=== PATIENT | male | born 1940 ===

== ENCOUNTER 2017-07-17 07:58 | Inpatient (IN) | payer MEDICARE, OTHER ==
[2017-07-17] MEDS ORDERED: HYDROmorphone 1 mg/ml ISec IVP STA ×2 (08:10→08:40)
[2017-07-17] MEDS ORDERED: Sodium Chloride 0.9% 500 ML IV STA (08:10)
[2017-07-17] MEDS ORDERED: Lidocaine 2% Jelly (Uro-Jet) ONE ×2 (08:22→10:47)
[2017-07-17] MEDS ORDERED: Sodium Chloride 0.9% 1,000 ML ONE (08:22)
[2017-07-17 08:36] LABS: BASO # 0.1 K/uL (0.0-0.2); BASO % 0.2 % (0.0-2.0); EOS # 0.1 K/uL (0.0-0.7); EOS % 0.2 % (0.0-4.0); HEMATOCRIT 49.6 % (35.0-51.0); LYMPH # 37.9 K/uL (1.0-4.3); LYMPH % 72.8 % (20.0-40.0); MEAN CORPUSCULAR HEMOGLOBIN 34.6 pg (27.0-31.0); MEAN CORPUSCULAR HGB CONC 32.4 g/dL (33.0-37.0); MEAN PLATELET VOLUME 10.5 fL (7.2-11.7); MONO # 1.5 K/uL (0.0-0.8); NRBC % 0.3 % (0.0-2.0); PLATELET COUNT 244 K/uL (130-400); RED CELL DISTRIBUTION WIDTH 20.4 % (11.5-14.5)
[2017-07-17 08:44] LABS: WHITE BLOOD COUNT 52.1 K/uL (4.8-10.8)
--- NOTE | 2017-07-17 08:46 | C.PDOC ---
History Of Present Illness <Zenia Vicente - Last Filed: 07/17/17 11:21> <Anna Lara - Last Filed: 07/17/17 11:34> 77-year-old male, PMHx includes Benign Prostatic Hyperplasia, CLL, Hypertension , Hypercholesterolemia, Kidney Stones, is brought to the emergency department accompanied by family, with complaints of urinary retention, that started last night. Patient is crying and uncomfortable, unable to provide further Hx. No other complaints at this time. (Anna Lara) <Zenia Vicente - Last Filed: 07/17/17 11:21> History Per: Family History/Exam Limitations: clinical condition Onset/Duration Of Symptoms: Hrs Current Symptoms Are (Timing): Still Present Severity: Moderate <Anna Lara - Last Filed: 07/17/17 11:34> Chief Complaint (Nursing): Male Genitourinary Past Medical History Reviewed: Historical Data, Nursing Documentation, Vital Signs - Medical History PMH: Benign Prostatic Hyperplasia, HTN, Hypercholesterolemia, Kidney Stones, Chronic Kidney Disease Family History: States: Unknown Family Hx Denies: CAD - Social History Hx Alcohol Use: No Hx Substance Use: No - Immunization History Hx Tetanus Toxoid Vaccination: No Hx Influenza Vaccination: Yes (07/2015) Hx Pneumococcal Vaccination: No <Anna Lara - Last Filed: 07/17/17 11:34> Vital Signs: Last Vital Signs Temp 97.5 F L 07/17/17 08:03 Pulse 106 H 07/17/17 11:18 Resp 18 07/17/17 11:18 BP 151/85 H 07/17/17 11:18 Pulse Ox 96 07/17/17 11:18 Review Of Systems Constitutional: Negative for: Fever Gastrointestinal: Positive for: Abdominal Pain. Negative for: Nausea, Vomiting Genitourinary: Positive for: Other (urinary retention). Negative for: Penile Pain Neurological: Negative for: Weakness, Numbness <Anna Lara - Last Filed: 07/17/17 11:34> Physical Exam - Physical Exam Appears: Non-toxic, No Acute Distress, Other (Uncomfortable, Crying.) Skin: Warm, Dry, No Rash Nose: Normal Oral Mucosa: Moist Lips: Normal Appearing Neck: Normal ROM Chest: Symmetrical Cardiovascular: Rhythm Regular, No Murmur Respiratory: No Accessory Muscle Use Gastrointestinal/Abdominal: Distention (Bladder) Extremity: Normal ROM Neurological/Psych: Oriented x3 <Anna Lara - Last Filed: 07/17/17 11:34> ED Course And Treatment - Laboratory Results Result Diagrams: 07/17/17 08:22 07/17/17 08:22 <Zenia Vicente - Last Filed: 07/17/17 11:21> - Laboratory Results Result Diagrams: 07/17/17 08:22 07/17/17 08:22 O2 Sat by Pulse Oximetry: 94 Progress Note: Several unsuccessful attempts to catheterize (w/ 14, 12, 16) patient. 0820: Case discussed with Dr Watson, states he is not available at this time, and will be able to come in "mid-afternoon.". 09:15. Case discussed w/ Dr Chavez, states he will come in to examine patient at bedside <Anna Lara - Last Filed: 07/17/17 11:34> Disposition <Zenia Vicente - Last Filed: 07/17/17 11:21> - Disposition Disposition Time: 11:34 <Anna Lara - Last Filed: 07/17/17 11:34> - Disposition Condition: FAIR Forms: [facility] (Bulgarian) - Clinical Impression Clinical Impression: Acute urinary retention, CLL (chronic lymphocytic leukemia) <Zenia Vicente - Last Filed: 07/17/17 11:21> - PA / WEATHER CLERK / Resident Statement MD/DO has reviewed & agrees with the documentation as recorded. - Scribe Statement The provider has reviewed the documentation as recorded by the Scribe (Jimmy Lopez) <Anna Lara - Last Filed: 07/17/17 11:34> - Scribe Statement All medical record entries made by the Scribe were at my direction and personally dictated by me. I have reviewed the chart and agree that the record accurately reflects my personal performance of the history, physical exam, medical decision making, and the department course for this patient. I have also personally directed, reviewed, and agree with the discharge instructions and disposition. (Anna Lara) Addendum <Zenia Vicente - Last Filed: 07/17/17 11:21> <Anna Lara - Last Filed: 07/17/17 11:34> Addendum: 07/17/17 11:21 Multiple attempts made by me to insert Coudet catheter - 14 gauge, 12 gauge, 16 gauge, all unsuccessful. (Zenia Vicente)
[2017-07-17 08:58] LABS: CHLORIDE 103 mmol/L (98-107); POTASSIUM 4.1 mmol/L (3.6-5.2); SODIUM 137 mmol/L (132-148)
[2017-07-17 09:00] LABS: ALB/GLOB RATIO 1.3 (1.0-2.1); AST/SGOT 32 U/L (17-59); CARBON DIOXIDE 19 mmol/L (22-30); GFR AFRICAN-AMERICAN > 60; TOTAL PROTEIN 8.2 g/dL (6.3-8.3)
[2017-07-17 09:01] LABS: ALKALINE PHOSPHATASE 58 U/L (38-126); ALT/SGPT 51 U/L (21-72); BLOOD UREA NITROGEN 24 mg/dL (9-20); CALCIUM 10.3 mg/dl (8.6-10.4); GLUCOSE,RANDOM 168 mg/dL (75-110)
[2017-07-17 10:04] LABS: NEUTROPHIL 29 % (50-75); REACTIVE LYMPHOCYTES 26 % (0-0); TOTAL CELLS COUNTED 100
[2017-07-17 10:06] LABS: LARGE PLATELETS PRESENT
[2017-07-17 10:10] LABS: SMUDGE CELLS PRESENT
[2017-07-17 10:16] LABS: RBC URINE 489 /hpf (0-3); URINE BILIRUBIN NEGATIVE (NEGATIVE); URINE BLOOD 2+ (NEGATIVE); URINE COLOR Yellow (YELLOW); URINE GLUCOSE (UA) 3+ mg/dL (Normal); URINE KETONE NEGATIVE (NEGATIVE); URINE LEUKOCYTE ESTERASE 2+ Leu/uL (Negative); URINE PROTEIN 2+ mg/dL (NEGATIVE); URINE UROBILINOGEN NORMAL mg/dL (0.2-1.0); WBC URINE 113 /hpf (0-5)
[2017-07-17] MEDS ORDERED: cefTRIAXone IV 1 gm in Dextros 50 ML IVPB ONE (11:15)
[2017-07-17] MEDS ORDERED: cefTRIAXone IV 1 gm in Dextros 50 ML IVPB STA (11:23)
[2017-07-17] MEDS ORDERED: Lidocaine 2% Inj (20ml) ONE (13:44)
[2017-07-17] MEDS ORDERED: Lactated Ringer's 1,000 ML IV ONE (15:10)
[2017-07-17] MEDS ORDERED: Propofol 10 mg/ml Inj (20 ML) ONE (15:14)
[2017-07-17] MEDS ORDERED: Midazolam 2 MG/2 ML VIAL ONE (15:14)
[2017-07-17] MEDS ORDERED: Etomidate 20 mg/10ml Inj IV ONE (15:42)
[2017-07-17] MEDS ORDERED: Sodium Chloride 0.9% 1,000 ML IV ONE (15:46)
[2017-07-17] MEDS ORDERED: HYDROmorphone 0.5 mg/0.5 ml ISec IVP PRN (15:48)
--- NOTE | 2017-07-17 16:32 | RAD ---
PROCEDURE: CHEST RADIOGRAPH, 1 VIEW HISTORY: R/O COMPARISON: Comparison is made to 02/06/2016 FINDINGS: LUNGS: Clear. PLEURA: No pneumothorax or pleural fluid seen. CARDIOVASCULAR: Normal. OSSEOUS STRUCTURES: No significant abnormalities. VISUALIZED UPPER ABDOMEN: Normal. OTHER FINDINGS: None. IMPRESSION: No active disease.
[2017-07-17 16:50] VITALS: RESP 20
[2017-07-17] MEDS: Lactated Ringer's 1,000 ML IV SCH (18:50)
--- NOTE | 2017-07-17 21:05 | CP.PCM.HP ---
History of Present Illness - History of Present Illness History of Present Illness: Chief complaint: Acute urinary retention History of present illness: 77-year-old male with a history of BPH, chronic lymphocytic leukemia hypertension high cholesterol renal stones admitted with a severe urinary tract obstruction. Patient was in severe pain at this time in the emergency room. Immediately patient underwent surgical procedure for Hung catheter placement. Under conscious sedation in the OR Hung catheter was placed. And the patient needed hospitalization. Clinical patient is stable otherwise. Past medical history: BPH, hypertension, high cholesterol, kidney stones, CRI Family history nonsignificant Nonalcohol nonsmoker Allergies no known drug allergy Surgical history biopsy. BPH. Hung catheter placement Review of system system: Prior to the Hung catheter patient was in severe distress, now have feeling better. No chest pain. On examination: Not in any distress vital signs stable chest good air entry regular abdomen nontender abdomen no pedal edema Assessment and recognition: 77-year-old male with history of BPH, hyper tension, chronic lymphocytic leukemia hypercholesteremia renal stones admitted with acute urinary retention. His status post a Hung catheter. Placement. We'll closely monitor the patient. Present on Admission - Present on Admission Any Indicators Present on Admission: No History of DVT/PE: No History of Uncontrolled Diabetes: No Urinary Catheter: No Decubitus Ulcer Present: No Past Patient History - Infectious Disease Hx of Infectious Diseases: None - Past Medical History & Family History Past Medical History?: Yes - Past Social History Smoking Status: Never Smoked - CARDIAC Hx Cardiac Disorders: Yes Hx Hypercholesterolemia: Yes Hx Hypertension: Yes - PULMONARY Hx Respiratory Disorders: No - NEUROLOGICAL Hx Neurological Disorder: No - HEENT Hx HEENT Problems: No - RENAL Hx Chronic Kidney Disease: Yes Hx Kidney Stones: Yes - ENDOCRINE/METABOLIC Hx Endocrine Disorders: Yes Hx Diabetes Mellitus Type 2: Yes - HEMATOLOGICAL/ONCOLOGICAL Hx Blood Disorders: No - INTEGUMENTARY Hx Dermatological Problems: No - MUSCULOSKELETAL/RHEUMATOLOGICAL Hx Musculoskeletal Disorders: No Hx Falls: No - GASTROINTESTINAL Hx Gastrointestinal Disorders: Yes Hx Gastroesophageal Reflux: Yes - GENITOURINARY/GYNECOLOGICAL Hx Genitourinary Disorders: Yes - PSYCHIATRIC Hx Psychophysiologic Disorder: No Hx Substance Use: No - SURGICAL HISTORY Hx Surgeries: Yes - ANESTHESIA Hx Anesthesia: Yes Hx Anesthesia Reactions: No Hx Malignant Hyperthermia: No Has any member of the family had a problem w/ anesthesia?: No Meds Home Medications: Home Medication List Medication Instructions Recorded Confirmed Type Ciprofloxacin [Cipro] 500 mg PO BID #6 tab 07/18/17 Rx Phenazopyridine [Pyridium] 200 mg PO BIDPC #6 tab 07/18/17 Rx Allergies/Adverse Reactions: Allergies Allergy/AdvReac Type Severity Reaction Status Date / Time No Known Allergies Allergy Verified 02/06/16 11:29 Results - Vital Signs Recent Vital Signs: Last Vital Signs Temp 97.5 F L 07/17/17 16:40 Pulse 85 07/17/17 16:40 Resp 20 07/17/17 16:40 BP 149/68 07/17/17 16:40 Pulse Ox 93 L 07/17/17 16:40 - Labs Result Diagrams: 07/17/17 08:22 07/17/17 08:22 Labs: Laboratory Results - last 24 hr 07/17/17 07/17/17 07/17/17 08:22 08:22 10:04 WBC 52.1 H* D RBC 4.64 Hgb 16.1 Hct 49.6 MCV 107.0 H MCH 34.6 H MCHC 32.4 L RDW 20.4 H Plt Count 244 MPV 10.5 Neut % (Auto) 23.8 L Lymph % (Auto) 72.8 H [place] % (Auto) 3.0 Eos % (Auto) 0.2 Baso % (Auto) 0.2 Neut # 12.4 H Lymph # 37.9 H [place] # 1.5 H Eos # 0.1 Baso # 0.1 Neutrophils % (Manual) 29 L Band Neutrophils % 1 Lymphocytes % (Manual) 43 H Reactive Lymphs % 26 H Monocytes % (Manual) 1 Smudge Cells Present Toxic Granulation Present Platelet Estimate Normal Large Platelets Present Hypochromasia (manual) Slight Poikilocytosis (manual Slight Basophilic Stippling Slight Anisocytosis (manual) Moderate Microcytosis (manual) Slight Macrocytosis (manual) Moderate Tear Drop Cells Slight Ovalocytes Slight PT INR APTT Sodium 137 Potassium 4.1 Chloride 103 Carbon Dioxide 19 L Anion Gap 19 BUN 24 H Creatinine 0.9 Est GFR ( Amer) > 60 Est GFR (Non-Af Amer) > 60 Random Glucose 168 H Calcium 10.3 Total Bilirubin 2.0 H AST 32 ALT 51 Alkaline Phosphatase 58 Total Protein 8.2 Albumin 4.6 Globulin 3.6 Albumin/Globulin Ratio 1.3 Lipase 111 Urine Color Yellow Urine Clarity Hazy Urine pH 9.0 Ur Specific [place] 1.025 Urine Protein 2+ H Urine Glucose (UA) 3+ H Urine Ketones Negative Urine Blood 2+ H Urine Nitrate Negative Urine Bilirubin Negative Urine Urobilinogen Normal Ur Leukocyte Esterase 2+ H Urine WBC (Auto) 113 H Urine RBC (Auto) 489 H Ur Squamous Epith Cells 1 Urine Yeast (Budding) Rare H Blood Type Antibody Screen 07/17/17 07/17/17 14:30 14:30 WBC RBC Hgb Hct MCV MCH MCHC RDW Plt Count MPV Neut % (Auto) Lymph % (Auto) [place] % (Auto) Eos % (Auto) Baso % (Auto) Neut # Lymph # [place] # Eos # Baso # Neutrophils % (Manual) Band Neutrophils % Lymphocytes % (Manual) Reactive Lymphs % Monocytes % (Manual) Smudge Cells Toxic Granulation Platelet Estimate Large Platelets Hypochromasia (manual) Poikilocytosis (manual Basophilic Stippling Anisocytosis (manual) Microcytosis (manual) Macrocytosis (manual) Tear Drop Cells Ovalocytes PT 11.0 INR 1.0 APTT 28 Sodium Potassium Chloride Carbon Dioxide Anion Gap BUN Creatinine Est GFR ( Amer) Est GFR (Non-Af Amer) Random Glucose Calcium Total Bilirubin AST ALT Alkaline Phosphatase Total Protein Albumin Globulin Albumin/Globulin Ratio Lipase Urine Color Urine Clarity Urine pH Ur Specific [place] Urine Protein Urine Glucose (UA) Urine Ketones Urine Blood Urine Nitrate Urine Bilirubin Urine Urobilinogen Ur Leukocyte Esterase Urine WBC (Auto) Urine RBC (Auto) Ur Squamous Epith Cells Urine Yeast (Budding) Blood Type O NEGATIVE Antibody Screen Negative
--- NOTE | 2017-07-17 21:41 | HP ---
EMERGENCY ROOM HISTORY AND PHYSICAL This patient is now being scheduled to the cystoscopy suite to insert a Hung catheter. BRIEF HISTORY: The patient is a 77-year-old male from [place], who has a more than 2-year history of BPH, currently on Flomax 0.4 mg daily, who presents to [facility] Emergency Room with a 12-hour history of acute urinary retention,voiding just small amount of urine and found to have over 700 mL of residual urine on bladder scan. The patient complaints of lower abdominal distention and pain. Multiple attempts by the ER staff to insert a Hung catheter and coude catheters met without success. Attempt by myself to insert an 18-Namibian, 16-Namibian and 14-Namibian coude catheters also met with resistance at the bladder neck area. There was also a slight strictured area just distal to the fossa navicularis but this eventually allowed a passage of a 16-Namibian coude catheter and 14-Namibian coude catheter. PAST MEDICAL HISTORY: Includes diabetes, hypertension, and BPH. PAST SURGICAL HISTORY: He denies any past surgical history, especially any urologic procedures. ALLERGIES: HE HAS NO KNOWN ALLERGIES TO ANY MEDICATIONS. SOCIAL HISTORY: He is a tobacco user, but no history of any alcohol use. PHYSICAL EXAMINATION: GENERAL: Today, the patient is a well-developed, well-nourished, obese male, alert and oriented. HEENT: Grossly within normal limits. NECK: Supple. Thyroid not palpable. ABDOMEN: Soft, but his lower abdominal area is distended and tender. He does have some blood from the urethral meatus and is also voiding very small amounts of some grossly bloody urine. This is prior to my instrumentation in the ER. GENITALIA: The patient is not circumcised, has a normal glans meatus without any rashes or lesions visualized. Testes are down bilaterally, nontender without any masses. RECTAL: Normal rectal tone without fluctuance or masses. Prostate is enlarged, smooth, symmetrical and nontender without nodules or indurations with a palpable median sulcus. EXTREMITIES: He has full range of motion of both upper and lower extremities. LABORATORY EVALUATION: From the ER on 07/17/2017 shows a CBC with a WBC count of 52.1, which is markedly elevated, which is consistent with his family history of an elevated WBC count. Platelet count is 244,000. Hemoglobin is 15.1, hematocrit 49.6. His chem profile shows a sodium of 137, potassium 4.1, chloride 103, CO2 of 19, BUN and creatinine of 24 and 0.9 respectively with a GFR greater than 60. Random glucose is 168. Calcium is 10.3. Total bilirubin was 2.0, AST was 32, ALT 51. Lipase 111. Urinalysis: Color was yellow, clarity was hazy, pH was 9.0, specific gravity 1.025, protein was 3+, glucose was 3+, ketones negative, blood was 2+, nitrite was negative, bilirubin was negative; leukocyte esterase was 2+, 113 wbc's, 489 rbc's per high-power field with rare yeast. UROLOGIC DIAGNOSTIC IMPRESSION: 1. Acute urinary retention. 2. Benign prostatic hypertrophy. PLAN: To schedule the patient for cystoscopy and insertion of a complicated Hung catcher and possible punch suprapubic cystostomy. Ean Chavez MD
[2017-07-17] MEDS ORDERED: Rosuvastatin Calcium 2.5 mg Tab PO SCH (22:00)
--- NOTE | 2017-07-18 02:07 | OP ---
PREOPERATIVE DIAGNOSIS: Urinary retention with traumatic catheterization. POSTOPERATIVE DIAGNOSIS: Urinary retention with traumatic catheterization. PROCEDURE PERFORMED: Cystoscopy with direct vision insertion of a Hung catheter under general anesthesia. DESCRIPTION OF PROCEDURE: The patient was placed in the operating table on dorsal lithotomy position. The area of the groin was draped and prepped in the sterile manner. I anteverted a #22 cystoscope, got to the level of the proximal urethra, and at this point, it was entirely bloody, could not see anything. After a while with some pressure on the water, I was able to see some false passages on the upper portion of the urethra. I was able to cannulate a small opening which was his existing urethra with a sensor wire. Once that sensor wire clearly went in, I then inserted a #16 two-way Hung catheter over that sensor wire and it began to drain immediately clear diana urine. Once this was done, I left the catheter in place. The patient was taken from the operating room in good condition. Savanah Mckenzie MD
[2017-07-18] MEDS ORDERED: Enoxaparin 40 mg Syringe SC SCH (10:00)
[2017-07-18] MEDS: Lactated Ringer's 1,000 ML IV SCH (14:42)
[2017-07-18 15:55] VITALS: BP 135/68; PULSE 80; TEMP 97.6; O2SAT 96
--- NOTE | 2017-07-18 15:57 | CP.PCM.PN ---
Subjective - Date & Time of Evaluation Date of Evaluation: 07/18/17 Time of Evaluation: 15:51 - Subjective Subjective: PATIENT SEEN AND EXAMINED AAO X3 NO SIGN OF ACUTE DISTRESS NOTED Objective - Vital Signs/Intake and Output Vital Signs (last 24 hours): Temp Pulse Resp BP Pulse Ox 98.1 F 74 20 120/70 94 L 07/18/17 08:00 07/18/17 08:00 07/18/17 08:00 07/18/17 08:00 07/18/17 08:00 Intake and Output: 07/18/17 07/18/17 06:59 18:59 Intake Total 900 840 Output Total 1050 1100 Balance -150 -260 - Medications Medications: Current Medications Ciprofloxacin (Cipro) 500 mg PO BID [facility] Last Admin: 07/18/17 09:40 Dose: 500 mg Famotidine (Pepcid) 20 mg PO DAILY [facility] Last Admin: 07/18/17 10:40 Dose: 20 mg Heparin Sodium (Porcine) (Heparin) 5,000 units SC Q8 [facility] Last Admin: 07/18/17 14:00 Dose: Not Given Lactated Ringer's (Lactated Ringer's) 1,000 mls @ 50 mls/hr IV .Q20H [facility] Last Admin: 07/18/17 14:42 Dose: 50 mls/hr Lisinopril (Zestril) 2.5 mg PO DAILY [facility] Last Admin: 07/18/17 09:40 Dose: 2.5 mg Phenazopyridine HCl (Pyridium) 200 mg PO BIDPC [facility] Last Admin: 07/18/17 09:40 Dose: 200 mg Pneumococcal Polyvalent Vaccine (Pneumovax 23 Vaccine) 0.5 ml IM .ONCE ONE Stop: 07/20/17 10:01 Prednisone (Prednisone Tab) 20 mg PO BID [facility] Last Admin: 07/18/17 09:40 Dose: 20 mg Rosuvastatin Calcium (Crestor) 2.5 mg PO HS [facility] Last Admin: 07/17/17 22:30 Dose: 2.5 mg Tamsulosin HCl (Flomax) 0.4 mg PO DAILY [facility] Last Admin: 07/18/17 10:35 Dose: 0.4 mg - Labs Labs: 07/17/17 08:22 07/17/17 08:22 PT 11.0 SECONDS (9.7-12.2) 07/17/17 14:30 INR 1.0 07/17/17 14:30 APTT 28 SECONDS (21-34) 07/17/17 14:30 Assessment and Plan - Assessment and Plan (Free Text) Assessment: DISCHARGE PLANNING DISCUSS WITH DR CALDERA AND CLEAR PATIENT FOR DC DR NORTH CLEARED PATIENT FOR DC WITH GENAO CATH AND FOLLOW UP OUT PATIENT TO HIS OFFICE GENAO CATH/LEG BAG IN PLACE AND PATIENT WAS INSTRUCTED HOW TO EMPTY GENAO BAG AND PATIENT WAS ABLE TO RETURN DEMONSTRATION SHOWN PATIENT NEED TO FOLOW UP WITH DR PALUMBO PMD OUT PATIENT IN A WEEK
[2017-07-18] MEDS ORDERED: Influenza Vaccine 60 mcg/0.5 mL SYR (4YR UP) IM ONE (16:15)
[2017-07-18] MEDS ORDERED: Pneumococcal 23-Valent Vaccine IM ONE (16:30)
--- NOTE | 2017-07-18 21:36 | CP.PCM.DIS ---
Provider - Provider Date of Admission: 07/17/17 11:31 Attending physician: Ho Dela Cruz MD Time Spent in preparation of Discharge (in minutes): 45 Hospital Course - Lab Results Lab Results: Micro Results 07/17/17 08:11 Urine Urine Culture - Final No Growth (<1,000 CFU/ML) Most Recent Lab Values WBC 52.1 K/uL (4.8-10.8) H* D 07/17/17 08:22 RBC 4.64 Mil/uL (4.40-5.90) 07/17/17 08:22 Hgb 16.1 g/dL (12.0-18.0) 07/17/17 08:22 Hct 49.6 % (35.0-51.0) 07/17/17 08:22 MCV 107.0 fL (80.0-94.0) H 07/17/17 08:22 MCH 34.6 pg (27.0-31.0) H 07/17/17 08:22 MCHC 32.4 g/dL (33.0-37.0) L 07/17/17 08:22 RDW 20.4 % (11.5-14.5) H 07/17/17 08:22 Plt Count 244 K/uL (130-400) 07/17/17 08:22 MPV 10.5 fL (7.2-11.7) 07/17/17 08:22 Neut % (Auto) 23.8 % (50.0-75.0) L 07/17/17 08:22 Lymph % (Auto) 72.8 % (20.0-40.0) H 07/17/17 08:22 [place] % (Auto) 3.0 % (0.0-10.0) 07/17/17 08:22 Eos % (Auto) 0.2 % (0.0-4.0) 07/17/17 08:22 Baso % (Auto) 0.2 % (0.0-2.0) 07/17/17 08:22 Neut # 12.4 K/uL (1.8-7.0) H 07/17/17 08:22 Lymph # 37.9 K/uL (1.0-4.3) H 07/17/17 08:22 [place] # 1.5 K/uL (0.0-0.8) H 07/17/17 08:22 Eos # 0.1 K/uL (0.0-0.7) 07/17/17 08:22 Baso # 0.1 K/uL (0.0-0.2) 07/17/17 08:22 Neutrophils % (Manual) 29 % (50-75) L 07/17/17 08:22 Band Neutrophils % 1 % (0-2) 07/17/17 08:22 Lymphocytes % (Manual) 43 % (20-40) H 07/17/17 08:22 Reactive Lymphs % 26 % (0-0) H 07/17/17 08:22 Monocytes % (Manual) 1 % (0-10) 07/17/17 08:22 Smudge Cells Present 07/17/17 08:22 Toxic Granulation Present 07/17/17 08:22 Platelet Estimate Normal (NORMAL) 07/17/17 08:22 Large Platelets Present 07/17/17 08:22 Hypochromasia (manual) Slight 07/17/17 08:22 Poikilocytosis (manual Slight 07/17/17 08:22 Basophilic Stippling Slight 07/17/17 08:22 Anisocytosis (manual) Moderate 07/17/17 08:22 Microcytosis (manual) Slight 07/17/17 08:22 Macrocytosis (manual) Moderate 07/17/17 08:22 Tear Drop Cells Slight 07/17/17 08:22 Ovalocytes Slight 07/17/17 08:22 Smear Path Review 07/17/17 08:22 PT 11.0 SECONDS (9.7-12.2) 07/17/17 14:30 INR 1.0 07/17/17 14:30 APTT 28 SECONDS (21-34) 07/17/17 14:30 Sodium 137 mmol/L (132-148) 07/17/17 08:22 Potassium 4.1 mmol/L (3.6-5.2) 07/17/17 08:22 Chloride 103 mmol/L (98-107) 07/17/17 08:22 Carbon Dioxide 19 mmol/L (22-30) L 07/17/17 08:22 Anion Gap 19 (10-20) 07/17/17 08:22 BUN 24 mg/dL (9-20) H 07/17/17 08:22 Creatinine 0.9 mg/dL (0.8-1.5) 07/17/17 08:22 Est GFR ( Amer) > 60 07/17/17 08:22 Est GFR (Non-Af Amer) > 60 07/17/17 08:22 POC Glucose (mg/dL) 171 mg/dL (65-110) H 07/18/17 11:17 Random Glucose 168 mg/dL (75-110) H 07/17/17 08:22 Calcium 10.3 mg/dl (8.6-10.4) 07/17/17 08:22 Total Bilirubin 2.0 mg/dL (0.2-1.3) H 07/17/17 08:22 AST 32 U/L (17-59) 07/17/17 08:22 ALT 51 U/L (21-72) 07/17/17 08:22 Alkaline Phosphatase 58 U/L (38-126) 07/17/17 08:22 Total Protein 8.2 g/dL (6.3-8.3) 07/17/17 08:22 Albumin 4.6 g/dL (3.5-5.0) 07/17/17 08:22 Globulin 3.6 gm/dL (2.2-3.9) 07/17/17 08:22 Albumin/Globulin Ratio 1.3 (1.0-2.1) 07/17/17 08:22 Lipase 111 U/L (23-300) 07/17/17 08:22 Urine Color Yellow (YELLOW) 07/17/17 10:04 Urine Clarity Hazy (Clear) 07/17/17 10:04 Urine pH 9.0 (5.0-8.0) 07/17/17 10:04 Ur Specific [place] 1.025 (1.003-1.030) 07/17/17 10:04 Urine Protein 2+ mg/dL (NEGATIVE) H 07/17/17 10:04 Urine Glucose (UA) 3+ mg/dL (Normal) H 07/17/17 10:04 Urine Ketones Negative mg/dL (NEGATIVE) 07/17/17 10:04 Urine Blood 2+ (NEGATIVE) H 07/17/17 10:04 Urine Nitrate Negative (NEGATIVE) 07/17/17 10:04 Urine Bilirubin Negative (NEGATIVE) 07/17/17 10:04 Urine Urobilinogen Normal mg/dL (0.2-1.0) 07/17/17 10:04 Ur Leukocyte Esterase 2+ Kayleigh/uL (Negative) H 07/17/17 10:04 Urine WBC (Auto) 113 /hpf (0-5) H 07/17/17 10:04 Urine RBC (Auto) 489 /hpf (0-3) H 07/17/17 10:04 Ur Squamous Epith Cells 1 /hpf (0-5) 07/17/17 10:04 Urine Yeast (Budding) Rare /hpf (NEGATIVE) H 07/17/17 10:04 Blood Type O NEGATIVE 07/17/17 14:30 Antibody Screen Negative 07/17/17 14:30 - Hospital Course Hospital Course: Chief complaint: Acute urinary retention History of present illness: 77-year-old male with a history of BPH, chronic lymphocytic leukemia hypertension high cholesterol renal stones admitted with a severe urinary tract obstruction. Patient was in severe pain at this time in the emergency room. Immediately patient underwent surgical procedure for Genao catheter placement. Under conscious sedation in the OR Genao catheter was placed. And the patient needed hospitalization. Clinical patient is stable otherwise. Past medical history: BPH, hypertension, high cholesterol, kidney stones, CRI Family history nonsignificant Nonalcohol nonsmoker Allergies no known drug allergy Surgical history biopsy. BPH. Genao catheter placement Review of system system: Prior to the Genao catheter patient was in severe distress, now have feeling better. No chest pain. On examination: Not in any distress vital signs stable chest good air entry regular abdomen nontender abdomen no pedal edema Assessment and recognition: 77-year-old male with history of BPH, hyper tension, chronic lymphocytic leukemia hypercholesteremia renal stones admitted with acute urinary retention. His status post a Genao catheter. Placement. We'll closely monitor the patient. Region is clinical stable. He will be discharged home today. He will follow-up with the urologist as an outpatient. Follow up with the PMD. By mouth ciprofloxacin, will follow the patient Discharge Plan - Discharge Medications Prescriptions: Ciprofloxacin [Cipro] 500 mg PO BID #6 tab Phenazopyridine [Pyridium] 200 mg PO BIDPC #6 tab - Follow Up Plan Condition: FAIR Disposition: HOME/ ROUTINE Instructions: Ciprofloxacin (By mouth), Phenazopyridine (By mouth), Urinary Retention in Men (GEN), Urinary Leg Bag (GEN) Additional Instructions: FOLLOW UP WITH DR PALUMBO IN HIS OFFICE IN ONE WEEK ---CALL OFFICE FOR APPOINTMENT FOLLOW UP WITH DR NORTH IN HIS OFFICE IN ONE WEEK ---CALL OFFICE FOR APPOINTMENT CONTINUE HOME MEDICATION USSUAL TAKE CIPRO AND PYRIDIUM FOER 3 DAYS KEEP GENAO CATH IN PLACE AND EMPTY OUT SHOWN IN THE HOSPITAL ANY FURTHER QUESTION DR PALUMBO OR DR NORTH Referrals: Sy Palumbo [Staff Provider] - Savanah North MD [Medical Doctor] - Ho Dela Cruz MD [Staff Provider] -
--- NOTE | 2017-07-19 19:15 | CARD ---
APPROVED REPORT EKG Measurement Heart [id number] <Conclusion> Normal sinus rhythm Normal ECG
== END 2017-07-18 17:29 | disposition home or self-care (01) | DRG 726 ==
LOC: C.ER 07:58 → C.9E 11:31 → C.3T 15:31
PROVIDERS: ADMIT Internal Medicine; ATTEND Internal Medicine
PROC: 0T9B80Z Drainage of Bladder with Drainage Device, Via Natural or Artificial Opening Endoscopic (ICD-10-PCS; principal; 2017-07-17 15:10)
DX: N40.1 Benign prostatic hyperplasia with lower urinary tract symptoms (principal); R33.8 Other retention of urine; T83.83XA Hemorrhage due to genitourinary prosthetic devices, implants and grafts, initial encounter; C91.10 Chronic lymphocytic leukemia of B-cell type not having achieved remission; E11.22 Type 2 diabetes mellitus with diabetic chronic kidney disease; I12.9 Hypertensive chronic kidney disease with stage 1 through stage 4 chronic kidney disease, or unspecified chronic kidney disease; N18.9 Chronic kidney disease, unspecified; K21.9 Gastro-esophageal reflux disease without esophagitis; E78.00 Pure hypercholesterolemia, unspecified; Z72.0 Tobacco use; Z87.442 Personal history of urinary calculi

== ENCOUNTER 2017-07-25 11:17 | Inpatient (IN) | payer MEDICARE, OTHER ==
[2017-07-25] MEDS ORDERED: Midazolam 2 MG/2 ML VIAL ONE (13:22)
[2017-07-25] MEDS ORDERED: Lidocaine 2% Inj (20ml) ONE (13:27)
[2017-07-25] MEDS ORDERED: Iodixanol 320 MG/ML 100 ML BOTTLE IV ONE ×2 (13:27→14:46)
[2017-07-25] MEDS ORDERED: Nitroglycerin 50mg in D5W 50 MG/250 ML BOTTLE IV ONE (13:41)
[2017-07-25 14:44] VITALS: BMI 33.2
[2017-07-25] MEDS ORDERED: Sodium Chloride 0.45% 1,000 ML IV SCH (15:15)
--- NOTE | 2017-07-25 18:28 | CP.PCM.HP ---
<MayurAlura Nirmal - Last Filed: 07/25/17 18:39> History of Present Illness - History of Present Illness History of Present Illness: CC: Patient came in for diagnostic cardiac cath with Dr. Sr Patient is a 77 y/o M with PMHx of HTN, DM II, CLL, kidney stones, urinary retention, bph, and acid reflux who came today for a diagnostic cardiac catheterization with Dr. Sr. Patient was admitted to the hospital one week ago for high cholesterol renal stones and severe urinary tract obstruction and lundberg was placed. Since then patient has been feeling better with catheter today cardiac cath showed triple vessel disease. Patient denies shortness of breath, chest pain, abdominal pain, nausea, vomiting, constipation, or diarrhea. PMD: Dr. Tran PMHx: HTN, DM II, CLL, kidney stones, urinary retention, bph, and acid reflux Surgeries: none Allergies: NKDA Fam hx: mom and 2 sisters : DM II, brother: heart dx at 93 Social: stopped smoking in 1986 prior to which smoked 3-4 packs per day for 35 years, denies alcohol and drugs Home Meds: Prednison 20 mg BID Cetirizine 10 mg daily Glipizide XL 10 mg BID Strovite daily Tamsulosin .4mg daily Famotidine 20 mg daily Lisinopril 2.5 mg daily Atorvastatin 10 mg daily Ciprofloxacin 500 mg BID Present on Admission - Present on Admission Any Indicators Present on Admission: No History of DVT/PE: No History of Uncontrolled Diabetes: No Urinary Catheter: No Decubitus Ulcer Present: No Review of Systems - Constitutional Constitutional: absent: Chills, Fever, Headache - EENT Eyes: absent: Blurred Vision Nose/Mouth/Throat: absent: Sore Throat - Cardiovascular Cardiovascular: absent: Chest Pain, Claudication, Diaphoresis, Edema, Irregular Heart Rhythm - Respiratory Respiratory: absent: Dyspnea, Dyspnea on Exertion, Chest Congestion - Gastrointestinal Gastrointestinal: absent: Constipation, Diarrhea, Nausea, Vomiting - Genitourinary Genitourinary: Difficulty Urinating Additional comments: urinating well with lundberg - Musculoskeletal Musculoskeletal: absent: Muscle Weakness - Integumentary Integumentary: absent: New Lesions, Rash - Neurological Neurological: absent: Numbness, Tingling - Hematologic/Lymphatic Hematologic: absent: Easy Bleeding, Easy Bruising Past Patient History - Infectious Disease Hx of Infectious Diseases: None - Past Medical History & Family History Past Medical History?: Yes - Past Social History Smoking Status: Never Smoked - CARDIAC Hx Cardiac Disorders: Yes Hx Hypercholesterolemia: Yes Hx Hypertension: Yes - PULMONARY Hx Respiratory Disorders: No - NEUROLOGICAL Hx Neurological Disorder: No - HEENT Hx HEENT Problems: No - RENAL Hx Chronic Kidney Disease: Yes Hx Kidney Stones: Yes - ENDOCRINE/METABOLIC Hx Endocrine Disorders: Yes Hx Diabetes Mellitus Type 2: Yes - HEMATOLOGICAL/ONCOLOGICAL Hx Blood Disorders: No - INTEGUMENTARY Hx Dermatological Problems: No - MUSCULOSKELETAL/RHEUMATOLOGICAL Hx Musculoskeletal Disorders: No Hx Falls: No - GASTROINTESTINAL Hx Gastrointestinal Disorders: Yes Hx Gastroesophageal Reflux: Yes - GENITOURINARY/GYNECOLOGICAL Hx Genitourinary Disorders: Yes - PSYCHIATRIC Hx Psychophysiologic Disorder: No Hx Substance Use: No - SURGICAL HISTORY Hx Surgeries: Yes - ANESTHESIA Hx Anesthesia: Yes Hx Anesthesia Reactions: No Hx Malignant Hyperthermia: No Meds Allergies/Adverse Reactions: Allergies Allergy/AdvReac Type Severity Reaction Status Date / Time No Known Drug Allergies AdvReac Unknown none Verified 07/25/17 18:38 Physical Exam - Constitutional Appears: Non-toxic, No Acute Distress - Head Exam Head Exam: ATRAUMATIC, NORMAL INSPECTION, NORMOCEPHALIC - Eye Exam Eye Exam: EOMI, Normal appearance - ENT Exam ENT Exam: Mucous Membranes Moist - Respiratory Exam Respiratory Exam: Clear to Auscultation Bilateral, NORMAL BREATHING PATTERN. absent: Rales, Rhonchi, Wheezes, Respiratory Distress, Stridor - Cardiovascular Exam Cardiovascular Exam: REGULAR RHYTHM, +S1, +S2 - GI/Abdominal Exam GI & Abdominal Exam: Normal Bowel Sounds, Soft. absent: Tenderness - Extremities Exam Extremities exam: Positive for: normal inspection. Negative for: pedal edema, tenderness - Neurological Exam Neurological exam: Alert, Oriented x3 - Psychiatric Exam Psychiatric exam: Normal Affect, Normal Mood - Skin Skin Exam: Intact, Normal Color, Warm Results - Labs Labs: Laboratory Results - last 24 hr 07/25/17 16:05 POC Glucose (mg/dL) 102 Assessment & Plan - Assessment and Plan (Free Text) Assessment: 1. CAD as per cardiac angiogram ASA 81 mg daily Plavix 15mg daily Crestor 40 mg daily Heparin 5000 u sc q12h 2. HTN Lisinopril 12.5 mg daily 3. DM II Hold Glipizide for 48 hours R ISS high dose ACHS accuchecks ACHS 4. HLD Hold atorvastatin 50 mg Give Crestor 40 mg po daily 5. BPH Tamsulosin .4mg po daily 6. Urinary Retention f/u with urologist, Dr. Mckenzie as an outpatient Cipro 500 mg po daily 7. CLL stable 8. GERD Famotidine 20 mg po daily 9. Prophylaxis Struvite daily holding prednisone and cetirizine which was given to him for allergies which are no longer bothering him 1/2 NS @60 ml/ hr Florastor 250 mg po BID (do not give within 2 hours of cipro) <Darian Davis - Last Filed: 07/25/17 20:27> Results - Labs Labs: Laboratory Results - last 24 hr 07/25/17 16:05 POC Glucose (mg/dL) 102 Attending/Attestation - Attestation I have personally seen and examined this patient.: Yes I have fully participated in the care of the patient.: Yes I have reviewed all pertinent clinical information: Yes Notes (Text): 07/25/17 20:25 Patient was seen and examined at 6 PM 07/25/17 ICU Bed #15 History, Physical, Assessment and Plan were thoroughly gone over with the resident. I spoke with Dr. Sr and patient will be taken to [facility] for Cardiac Catheterization morning of 07/26/17 and then transferred back to [facility]. Darian Davis D.O.
--- NOTE | 2017-07-25 18:53 | CP.PCM.CON ---
History of Present Illness - History of Present Illness History of Present Illness: ICU Consult Note Patient is a 77 y/o M with PMHx of HTN, DM II, CLL, kidney stones, urinary retention, bph, and acid reflux who came today for a diagnostic cardiac catheterization with Dr. Sr. Patient was admitted to the hospital one week ago for high cholesterol renal stones and severe urinary tract obstruction and lundberg was placed. Since then patient has been feeling better with catheter today cardiac cath showed triple vessel disease. Patient denies shortness of breath, chest pain, abdominal pain, nausea, vomiting, constipation, or diarrhea. PMD: Dr. Tran PMHx: HTN, DM II, CLL, kidney stones, urinary retention, bph, and acid reflux Surgeries: none Allergies: NKDA Fam hx: mom and 2 sisters : DM II, brother: heart dx at 93 Social: stopped smoking in 1986 prior to which smoked 3-4 packs per day for 35 years, denies alcohol and drugs Home Meds: Prednison 20 mg BID Cetirizine 10 mg daily Glipizide XL 10 mg BID Strovite daily Tamsulosin .4mg daily Famotidine 20 mg daily Lisinopril 2.5 mg daily Atorvastatin 10 mg daily Ciprofloxacin 500 mg BID Review of Systems - Constitutional Constitutional: absent: Chills, Fever - EENT Eyes: absent: Blurred Vision Nose/Mouth/Throat: absent: Hoarsness, Sore Throat - Cardiovascular Cardiovascular: absent: Chest Pain, Chest Pain at Rest, Claudication, Diaphoresis, Dyspnea, Irregular Heart Rhythm, Leg Edema, Palpitations - Respiratory Respiratory: absent: Cough, Dyspnea - Gastrointestinal Gastrointestinal: absent: Abdominal Pain, Constipation, Diarrhea, Nausea, Vomiting - Genitourinary Genitourinary: Difficulty Urinating Additional comments: urinating well with lundberg - Musculoskeletal Musculoskeletal: absent: Muscle Weakness, Myalgias - Integumentary Integumentary: absent: New Lesions, Rash - Neurological Neurological: absent: Dizziness Past Patient History - Infectious Disease Hx of Infectious Diseases: None - Past Medical History & Family History Past Medical History?: Yes - Past Social History Smoking Status: Never Smoked - CARDIAC Hx Cardiac Disorders: Yes Hx Hypercholesterolemia: Yes Hx Hypertension: Yes - PULMONARY Hx Respiratory Disorders: No - NEUROLOGICAL Hx Neurological Disorder: No - HEENT Hx HEENT Problems: No - RENAL Hx Chronic Kidney Disease: Yes Hx Kidney Stones: Yes - ENDOCRINE/METABOLIC Hx Endocrine Disorders: Yes Hx Diabetes Mellitus Type 2: Yes - HEMATOLOGICAL/ONCOLOGICAL Hx Blood Disorders: No - INTEGUMENTARY Hx Dermatological Problems: No - MUSCULOSKELETAL/RHEUMATOLOGICAL Hx Musculoskeletal Disorders: No Hx Falls: No - GASTROINTESTINAL Hx Gastrointestinal Disorders: Yes Hx Gastroesophageal Reflux: Yes - GENITOURINARY/GYNECOLOGICAL Hx Genitourinary Disorders: Yes - PSYCHIATRIC Hx Psychophysiologic Disorder: No Hx Substance Use: No - SURGICAL HISTORY Hx Surgeries: Yes - ANESTHESIA Hx Anesthesia: Yes Hx Anesthesia Reactions: No Hx Malignant Hyperthermia: No Meds Allergies/Adverse Reactions: Allergies Allergy/AdvReac Type Severity Reaction Status Date / Time No Known Drug Allergies AdvReac Unknown none Verified 07/25/17 18:38 - Medications Medications: Current Medications Aspirin (Aspirin Chewable) 81 mg PO DAILY [facility] Ciprofloxacin (Cipro) 500 mg PO BID [facility] Clopidogrel Bisulfate (Plavix) 75 mg PO DAILY [facility] Famotidine (Pepcid) 20 mg PO Q12 [facility] Heparin Sodium (Porcine) (Heparin) 5,000 units SC Q12 [facility] Sodium Chloride (Sodium Chloride 0.45%) 1,000 mls @ 60 mls/hr IV .[id number] [facility] Stop: 07/26/17 03:16 Insulin Human Regular (Novolin R) 0 unit SC ACHS [facility] PRN Reason: Protocol Lisinopril (Zestril) 2.5 mg PO DAILY [facility] Rosuvastatin Calcium (Crestor) 40 mg PO HS [facility] Saccharomyces Boulardii (Florastor) 250 mg PO BID [facility] Tamsulosin HCl (Flomax) 0.4 mg PO DAILY [facility] Vitamin B Complex/Vitamin C (Berocca) 1 tab PO DAILY [facility] Results - Labs Labs: Laboratory Results - last 24 hr 07/25/17 16:05 POC Glucose (mg/dL) 102
--- NOTE | 2017-07-25 19:03 | CP.PCM.CON ---
History of Present Illness - History of Present Illness History of Present Illness: Patient is a 77 y/o M with PMHx of HTN, DM II, CLL, kidney stones, urinary retention, bph, and acid reflux who came today for a diagnostic cardiac catheterization with Dr. Sr. Patient was admitted to the hospital one week ago for high cholesterol renal stones and severe urinary tract obstruction and lundberg was placed. Since then patient has been feeling better with catheter today cardiac cath showed triple vessel disease. Patient denies shortness of breath, chest pain, abdominal pain, nausea, vomiting, constipation, or diarrhea. PMD: Dr. Tran PMHx: HTN, DM II, CLL, kidney stones, urinary retention, bph, and acid reflux Surgeries: none Allergies: NKDA Fam hx: mom and 2 sisters : DM II, brother: heart dx at 93 Social: stopped smoking in 1986 prior to which smoked 3-4 packs per day for 35 years, denies alcohol and drugs Home Meds: Prednison 20 mg BID Cetirizine 10 mg daily Glipizide XL 10 mg BID Strovite daily Tamsulosin .4mg daily Famotidine 20 mg daily Lisinopril 2.5 mg daily Atorvastatin 10 mg daily Ciprofloxacin 500 mg BID Review of Systems - Constitutional Constitutional: absent: Anorexia, Chills - EENT Eyes: absent: Blurred Vision Nose/Mouth/Throat: absent: Nasal Discharge, Change in Voice, Hoarsness, Sore Throat - Cardiovascular Cardiovascular: absent: Chest Pain, Chest Pain at Rest, Claudication, Diaphoresis, Dyspnea, Edema, Leg Edema, Palpitations - Respiratory Respiratory: absent: Dyspnea, Chest Congestion - Gastrointestinal Gastrointestinal: absent: Constipation, Diarrhea, Nausea, Vomiting - Genitourinary Genitourinary: Difficulty Urinating Additional comments: urinating well with lundberg - Integumentary Integumentary: absent: Changing Lesions, Rash - Neurological Neurological: absent: Numbness - Hematologic/Lymphatic Hematologic: absent: Easy Bleeding, Easy Bruising Past Patient History - Infectious Disease Hx of Infectious Diseases: None - Past Medical History & Family History Past Medical History?: Yes - Past Social History Smoking Status: Never Smoked - CARDIAC Hx Cardiac Disorders: Yes Hx Hypercholesterolemia: Yes Hx Hypertension: Yes - PULMONARY Hx Respiratory Disorders: No - NEUROLOGICAL Hx Neurological Disorder: No - HEENT Hx HEENT Problems: No - RENAL Hx Chronic Kidney Disease: Yes Hx Kidney Stones: Yes - ENDOCRINE/METABOLIC Hx Endocrine Disorders: Yes Hx Diabetes Mellitus Type 2: Yes - HEMATOLOGICAL/ONCOLOGICAL Hx Blood Disorders: No - INTEGUMENTARY Hx Dermatological Problems: No - MUSCULOSKELETAL/RHEUMATOLOGICAL Hx Musculoskeletal Disorders: No Hx Falls: No - GASTROINTESTINAL Hx Gastrointestinal Disorders: Yes Hx Gastroesophageal Reflux: Yes - GENITOURINARY/GYNECOLOGICAL Hx Genitourinary Disorders: Yes - PSYCHIATRIC Hx Psychophysiologic Disorder: No Hx Substance Use: No - SURGICAL HISTORY Hx Surgeries: Yes - ANESTHESIA Hx Anesthesia: Yes Hx Anesthesia Reactions: No Hx Malignant Hyperthermia: No Meds Allergies/Adverse Reactions: Allergies Allergy/AdvReac Type Severity Reaction Status Date / Time No Known Drug Allergies AdvReac Unknown none Verified 07/25/17 18:38 - Medications Medications: Current Medications Aspirin (Aspirin Chewable) 81 mg PO DAILY [facility] Ciprofloxacin (Cipro) 500 mg PO BID [facility] Clopidogrel Bisulfate (Plavix) 75 mg PO DAILY [facility] Famotidine (Pepcid) 20 mg PO Q12 [facility] Heparin Sodium (Porcine) (Heparin) 5,000 units SC Q12 [facility] Sodium Chloride (Sodium Chloride 0.45%) 1,000 mls @ 60 mls/hr IV .[id number] [facility] Stop: 07/26/17 03:16 Insulin Human Regular (Novolin R) 0 unit SC ACHS [facility] PRN Reason: Protocol Lisinopril (Zestril) 2.5 mg PO DAILY [facility] Rosuvastatin Calcium (Crestor) 40 mg PO HS [facility] Saccharomyces Boulardii (Florastor) 250 mg PO BID [facility] Tamsulosin HCl (Flomax) 0.4 mg PO DAILY [facility] Vitamin B Complex/Vitamin C (Berocca) 1 tab PO DAILY [facility] Physical Exam - Constitutional Appears: Non-toxic, No Acute Distress - Head Exam Head Exam: ATRAUMATIC, NORMAL INSPECTION, NORMOCEPHALIC - Eye Exam Eye Exam: EOMI, Normal appearance - ENT Exam ENT Exam: Mucous Membranes Moist - Respiratory Exam Respiratory Exam: Clear to Auscultation Bilateral, NORMAL BREATHING PATTERN. absent: Rales, Rhonchi, Wheezes, Respiratory Distress, Stridor - Cardiovascular Exam Cardiovascular Exam: REGULAR RHYTHM, +S1, +S2 - GI/Abdominal Exam GI & Abdominal Exam: Normal Bowel Sounds, Soft. absent: Tenderness - Extremities Exam Extremities exam: Positive for: normal inspection. Negative for: pedal edema, tenderness - Neurological Exam Neurological exam: Alert, Oriented x3 - Psychiatric Exam Psychiatric exam: Normal Affect, Normal Mood - Skin Skin Exam: Intact, Normal Color, Warm Results - Labs Labs: Laboratory Results - last 24 hr 07/25/17 16:05 POC Glucose (mg/dL) 102 Assessment & Plan - Assessment and Plan (Free Text) Assessment: Patient is a 77 y/o M with PMHx of HTN, DM II, CLL, kidney stones, urinary retention, bph, and acid reflux who came today for a diagnostic cardiac catheterization with Dr. Sr which showed triple vessel disease. Neuro: intact Pulm: no signs of acute pulmonary disease Cardio: Hx HTN, HLD Triple vessel dx as per cardiac cath Medications and management: * patient to go for therapeutic cardiac cath with Dr. Sr * ASA 81 mg daily * Plavix 15mg daily * Crestor 40 mg daily * Heparin 5000 u sc q12h * Lisinopril 12.5 mg daily * Crestor 40 mg po daily Heme: hx CLL * stable Endo: hx DM II Medications and management: * Hold Glipizide for 48 hours * R ISS high dose ACHS * accuchecks ACHS GI: hx GERD Medications and management: * Famotidine 20 mg po daily : hx BPH and Urinary retention Medications and management: * Tamsulosin .4mg po daily * f/u with urologist, Dr. Mckenzie as an outpatient * Cipro 500 mg po daily Prophylaxis: Medications and management: * Struvite daily * holding prednisone and cetirizine which was given to him for allergies which are no longer bothering him * 1/2 NS @60 ml/ hr * Florastor 250 mg po BID (do not give within 2 hours of cipro)
--- NOTE | 2017-07-25 21:45 | CP.PCM.PN ---
Subjective - Date & Time of Evaluation Date of Evaluation: 07/25/17 Time of Evaluation: 13:05 - Subjective Subjective: Patient s/p Cath Triple vessel disease For PCI at [place] tomorrow afternoon Patient will return back after the procedure NPO after breakfast Continue all ameds Objective - Vital Signs/Intake and Output Vital Signs (last 24 hours): Temp Pulse Resp BP Pulse Ox 98.3 F 63 18 119/60 97 07/25/17 20:00 07/25/17 20:55 07/25/17 20:55 07/25/17 20:55 07/25/17 20:55 Intake and Output: 07/25/17 07/26/17 18:59 06:59 Intake Total 120 Output Total 1000 Balance -880 - Medications Medications: Current Medications Aspirin (Aspirin Chewable) 81 mg PO DAILY [facility] Ciprofloxacin (Cipro) 500 mg PO BID [facility] Last Admin: 07/25/17 20:02 Dose: 500 mg Clopidogrel Bisulfate (Plavix) 75 mg PO DAILY [facility] Famotidine (Pepcid) 20 mg PO Q12 [facility] Heparin Sodium (Porcine) (Heparin) 5,000 units SC Q12 [facility] Sodium Chloride (Sodium Chloride 0.45%) 1,000 mls @ 60 mls/hr IV .[id number] [facility] Stop: 07/26/17 03:16 Last Admin: 07/25/17 17:00 Dose: 60 mls/hr Insulin Human Regular (Novolin R) 0 unit SC ACHS [facility] PRN Reason: Protocol Lisinopril (Zestril) 2.5 mg PO DAILY [facility] Rosuvastatin Calcium (Crestor) 40 mg PO HS [facility] Saccharomyces Boulardii (Florastor) 250 mg PO BID [facility] Tamsulosin HCl (Flomax) 0.4 mg PO DAILY [facility] Vitamin B Complex/Vitamin C (Berocca) 1 tab PO DAILY [facility]
[2017-07-25] MEDS: (Novolin R) Insulin Human Regular 100 units/ml vial SC SCH (23:17)
[2017-07-26 06:25] LABS: BASO # 0.1 K/uL (0.0-0.2); BASO % 0.3 % (0.0-2.0); EOS # 0.2 K/uL (0.0-0.7); EOS % 0.7 % (0.0-4.0); HEMATOCRIT 39.5 % (35.0-51.0); LYMPH # 19.2 K/uL (1.0-4.3); LYMPH % 69.9 % (20.0-40.0); MEAN CELL VOLUME 105.9 fL (80.0-94.0); MEAN CORPUSCULAR HEMOGLOBIN 35.6 pg (27.0-31.0); MEAN CORPUSCULAR HGB CONC 33.6 g/dL (33.0-37.0); MEAN PLATELET VOLUME 9.6 fL (7.2-11.7); MONO # 0.6 K/uL (0.0-0.8); MONO % 2.3 % (0.0-10.0); NRBC % 0.1 % (0.0-2.0); WHITE BLOOD COUNT 27.5 K/uL (4.8-10.8)
[2017-07-26 06:31] LABS: CHLORIDE 99 mmol/L (98-107); POTASSIUM 4.5 mmol/L (3.6-5.2); SODIUM 133 mmol/L (132-148)
[2017-07-26 06:33] LABS: ALB/GLOB RATIO 1.1 (1.0-2.1); ALKALINE PHOSPHATASE 43 U/L (38-126); ALT/SGPT 53 U/L (21-72); AST/SGOT 26 U/L (17-59); BILIRUBIN,TOTAL 2.2 mg/dL (0.2-1.3); BLOOD UREA NITROGEN 18 mg/dL (9-20); CARBON DIOXIDE 24 mmol/L (22-30); CHOLESTEROL 113 mg/dL (0-199); GFR AFRICAN-AMERICAN > 60; GLUCOSE,RANDOM 90 mg/dL (75-110); TOTAL PROTEIN 6.1 g/dL (6.3-8.3)
[2017-07-26 06:34] LABS: CALCIUM 8.9 mg/dl (8.6-10.4); PHOSPHOROUS 3.6 mg/dL (2.5-4.5)
[2017-07-26 07:08] LABS: THYROID STIMULATING HORMONE 2.15 mIU/L (0.46-4.68)
[2017-07-26] MEDS: (Novolin R) Insulin Human Regular 100 units/ml vial SC SCH ×4 (08:07→21:39)
--- NOTE | 2017-07-26 08:22 | CP.CCUPN ---
<JebmissyLaura Nirmal - Last Filed: 07/26/17 14:45> CCU Subjective - Physician Review Subjective (Free Text): Patient seen and examined at bedside and in no acute distress. Patient has no pain and is feeling okay. Patient last had a bowel movement 2 days ago. Patient denies chest pain, shortness of breath, abdominal pain, nausea, vomiting, or diarrhea. CCU Objective - Vital Signs / Intake & Output Intake and Output (Last 8hrs): Intake & Output 07/25/17 07/26/17 07/26/17 22:59 06:59 14:59 Intake Total 180 290 Output Total 1200 400 Balance -1020 -110 Intake: Intake, IV Amount 180 240 Left Hand 180 240 Oral 50 Output: Urine 1200 400 Urethral (Lundberg) 1200 400 Other: Voiding Method Indwelling Catheter - Physical Exam Head: Positive for: Atraumatic, Normocephalic Extroacular Muscles: Positive for: EOMI Conjunctiva: Positive for: Normal Mouth: Positive for: Moist Mucous Membranes Neck: Positive for: Normal Range of Motion Respiratory/Chest: Positive for: Clear to Auscultation, Good Air Exchange. Negative for: Respiratory Distress, Accessory Muscle Use Cardiovascular: Positive for: Regular Rate and Rhythm, Normal S1, S2 Abdomen: Positive for: Normal Bowel Sounds. Negative for: Tenderness, Distention Upper Extremity: Positive for: Normal Inspection (right wrist dressing clean, dry, intact) Lower Extremity: Positive for: Normal Inspection. Negative for: Edema Neurological: Positive for: GCS=15 Skin: Positive for: Warm, Dry, Normal Color Psychiatric: Positive for: Alert, Oriented x 3 - Medications Active Medications: Active Medications Generic Name Dose Route Start Last Admin Trade Name Tanoq PRN Reason Stop Dose Admin Aspirin 81 mg 07/26/17 10:00 Aspirin Chewable PO DAILY [facility] Ciprofloxacin 500 mg 07/25/17 18:45 07/25/17 20:02 Cipro PO 500 mg BID PATRICIA Administration Clopidogrel Bisulfate 75 mg 07/26/17 10:00 Plavix PO DAILY [facility] Famotidine 20 mg 07/25/17 22:00 07/25/17 23:16 Pepcid PO 20 mg Q12 PATRICIA Administration Heparin Sodium (Porcine) 5,000 units 07/25/17 22:00 07/25/17 23:14 Heparin SC 5,000 units Q12 PATRICIA Administration Insulin Human Regular 0 unit 07/25/17 22:00 07/26/17 08:07 Novolin R SC Not Given ACHS PATRICIA Protocol Lisinopril 2.5 mg 07/26/17 10:00 Zestril PO DAILY PATRIC[facility] Rosuvastatin Calcium 40 mg 07/25/17 22:00 07/25/17 23:15 Crestor PO 40 mg HS PATRICIA Administration Saccharomyces Boulardii 250 mg 07/26/17 10:00 Florastor PO BID PATRICIA Tamsulosin HCl 0.4 mg 07/26/17 10:00 Flomax PO DAILY PATRICIA Vitamin B Complex/Vitamin C 1 tab 07/26/17 10:00 Berocca PO DAILY PATRICIA - Patient Studies Lab Studies: Lab Studies 07/26/17 07/26/17 07/26/17 Range/Units 07:40 06:14 06:10 WBC 27.5 H (4.8-10.8) K/uL RBC 3.73 L (4.40-5.90) Mil/uL Hgb 13.3 D (12.0-18.0) g/dL Hct 39.5 (35.0-51.0) % MCV 105.9 H (80.0-94.0) fL MCH 35.6 H (27.0-31.0) pg MCHC 33.6 (33.0-37.0) g/dL RDW 20.0 H (11.5-14.5) % Plt Count 210 (130-400) K/uL MPV 9.6 (7.2-11.7) fL Neut % (Auto) 26.8 L (50.0-75.0) % Lymph % (Auto) 69.9 H (20.0-40.0) % [place] % (Auto) 2.3 (0.0-10.0) % Eos % (Auto) 0.7 (0.0-4.0) % Baso % (Auto) 0.3 (0.0-2.0) % Neut # 7.4 H (1.8-7.0) K/uL Lymph # 19.2 H (1.0-4.3) K/uL [place] # 0.6 (0.0-0.8) K/uL Eos # 0.2 (0.0-0.7) K/uL Baso # 0.1 (0.0-0.2) K/uL PT 11.5 (9.7-12.2) SECONDS INR 1.0 APTT 31 (21-34) SECONDS Sodium (132-148) mmol/L Potassium (3.6-5.2) mmol/L Chloride (98-107) mmol/L Carbon Dioxide (22-30) mmol/L Anion Gap (10-20) BUN (9-20) mg/dL Creatinine (0.8-1.5) mg/dL Est GFR ( Amer) Est GFR (Non-Af Amer) POC Glucose (mg/dL) 139 H (65-110) mg/dL Random Glucose (75-110) mg/dL Calcium (8.6-10.4) mg/dl Phosphorus (2.5-4.5) mg/dL Magnesium (1.6-2.3) mg/dL Total Bilirubin (0.2-1.3) mg/dL AST (17-59) U/L ALT (21-72) U/L Alkaline Phosphatase (38-126) U/L Total Creatine Kinase (55-170) U/L CK-MB (Mass) (0.0-3.38) ng/mL Troponin I, Quant (0.00-0.120) ng/mL Total Protein (6.3-8.3) g/dL Albumin (3.5-5.0) g/dL Globulin (2.2-3.9) gm/dL Albumin/Globulin Ratio (1.0-2.1) Triglycerides (0-149) mg/dL Cholesterol (0-199) mg/dL LDL Cholesterol Direct (0-129) mg/dL HDL Cholesterol (30-70) mg/dL TSH 3rd Generation (0.46-4.68) mIU/L 07/26/17 07/25/17 07/25/17 Range/Units 06:10 21:09 16:05 WBC (4.8-10.8) K/uL RBC (4.40-5.90) Mil/uL Hgb (12.0-18.0) g/dL Hct (35.0-51.0) % MCV (80.0-94.0) fL MCH (27.0-31.0) pg MCHC (33.0-37.0) g/dL RDW (11.5-14.5) % Plt Count (130-400) K/uL MPV (7.2-11.7) fL Neut % (Auto) (50.0-75.0) % Lymph % (Auto) (20.0-40.0) % [place] % (Auto) (0.0-10.0) % Eos % (Auto) (0.0-4.0) % Baso % (Auto) (0.0-2.0) % Neut # (1.8-7.0) K/uL Lymph # (1.0-4.3) K/uL [place] # (0.0-0.8) K/uL Eos # (0.0-0.7) K/uL Baso # (0.0-0.2) K/uL PT (9.7-12.2) SECONDS INR APTT (21-34) SECONDS Sodium 133 (132-148) mmol/L Potassium 4.5 (3.6-5.2) mmol/L Chloride 99 (98-107) mmol/L Carbon Dioxide 24 (22-30) mmol/L Anion Gap 13 (10-20) BUN 18 (9-20) mg/dL Creatinine 0.9 (0.8-1.5) mg/dL Est GFR ( Amer) > 60 Est GFR (Non-Af Amer) > 60 POC Glucose (mg/dL) 165 H 102 (65-110) mg/dL Random Glucose 90 (75-110) mg/dL Calcium 8.9 (8.6-10.4) mg/dl Phosphorus 3.6 (2.5-4.5) mg/dL Magnesium 2.0 (1.6-2.3) mg/dL Total Bilirubin 2.2 H (0.2-1.3) mg/dL AST 26 (17-59) U/L ALT 53 (21-72) U/L Alkaline Phosphatase 43 (38-126) U/L Total Creatine Kinase 28 L (55-170) U/L CK-MB (Mass) 1.36 (0.0-3.38) ng/mL Troponin I, Quant < 0.0120 (0.00-0.120) ng/mL Total Protein 6.1 L (6.3-8.3) g/dL Albumin 3.3 L D (3.5-5.0) g/dL Globulin 2.9 (2.2-3.9) gm/dL Albumin/Globulin Ratio 1.1 (1.0-2.1) Triglycerides 114 (0-149) mg/dL Cholesterol 113 (0-199) mg/dL LDL Cholesterol Direct 61 (0-129) mg/dL HDL Cholesterol 41 (30-70) mg/dL TSH 3rd Generation 2.15 (0.46-4.68) mIU/L Laboratory Results - last 24 hr 07/25/17 07/25/17 07/26/17 16:05 21:09 06:10 WBC RBC Hgb Hct MCV MCH MCHC RDW Plt Count MPV Neut % (Auto) Lymph % (Auto) [place] % (Auto) Eos % (Auto) Baso % (Auto) Neut # Lymph # [place] # Eos # Baso # PT INR APTT Sodium 133 Potassium 4.5 Chloride 99 Carbon Dioxide 24 Anion Gap 13 BUN 18 Creatinine 0.9 Est GFR ( Amer) > 60 Est GFR (Non-Af Amer) > 60 POC Glucose (mg/dL) 102 165 H Random Glucose 90 Calcium 8.9 Phosphorus 3.6 Magnesium 2.0 Total Bilirubin 2.2 H AST 26 ALT 53 Alkaline Phosphatase 43 Total Creatine Kinase 28 L CK-MB (Mass) 1.36 Troponin I, Quant < 0.0120 Total Protein 6.1 L Albumin 3.3 L D Globulin 2.9 Albumin/Globulin Ratio 1.1 Triglycerides 114 Cholesterol 113 LDL Cholesterol Direct 61 HDL Cholesterol 41 TSH 3rd Generation 2.15 07/26/17 07/26/17 07/26/17 06:10 06:14 07:40 WBC 27.5 H RBC 3.73 L Hgb 13.3 D Hct 39.5 MCV 105.9 H MCH 35.6 H MCHC 33.6 RDW 20.0 H Plt Count 210 MPV 9.6 Neut % (Auto) 26.8 L Lymph % (Auto) 69.9 H [place] % (Auto) 2.3 Eos % (Auto) 0.7 Baso % (Auto) 0.3 Neut # 7.4 H Lymph # 19.2 H [place] # 0.6 Eos # 0.2 Baso # 0.1 PT 11.5 INR 1.0 APTT 31 Sodium Potassium Chloride Carbon Dioxide Anion Gap BUN Creatinine Est GFR ( Amer) Est GFR (Non-Af Amer) POC Glucose (mg/dL) 139 H Random Glucose Calcium Phosphorus Magnesium Total Bilirubin AST ALT Alkaline Phosphatase Total Creatine Kinase CK-MB (Mass) Troponin I, Quant Total Protein Albumin Globulin Albumin/Globulin Ratio Triglycerides Cholesterol LDL Cholesterol Direct HDL Cholesterol TSH 3rd Generation Fingerstick Blood Sugar Results: 139 Review of Systems - Constitutional Constitutional: absent: Fever, Chills - EENT Eyes: absent: Blurred Vision - Cardiovascular Cardiovascular: absent: Chest Pain, Claudication, Dyspnea, Leg Edema - Respiratory Respiratory: absent: Cough, Dyspnea - Gastrointestinal Gastrointestinal: absent: Abdominal Pain, Diarrhea, Nausea, Vomiting - Genitourinary Genitourinary: absent: Difficulty Urinating Additional comments: urinating well with lundberg catheter - Musculoskeletal Musculoskeletal: absent: Numbness, Tingling - Integumentary Integumentary: absent: Rash - Neurological Neurological: UNREMARKABLE - Hematologic/Lymphatic Hematologic: absent: Easy Bleeding, Easy Bruising Critical Care Progress Note - Nutrition Nutrition: Nutrition Category Date Time Status Heart Healthy Diet [DIET] Diets 07/25/17 Dinner Active NPO Diet [DIET] Diets 07/26/17 Lunch Active Assessment/Plan - Assessment and Plan (Free Text) Assessment: Patient is a 77 y/o M with PMHx of HTN, DM II, CLL, kidney stones, urinary retention, bph, and acid reflux who came today for a diagnostic cardiac catheterization with Dr. Sr which showed triple vessel disease. 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 Sr this afternoon, will return after * ASA 81 mg daily * Plavix 15mg daily * Crestor 40 mg daily * Heparin 5000 u sc q12h * Lisinopril 12.5 mg daily * Crestor 40 mg po daily Heme: hx CLL * stable Endo: hx DM II Medications and management: * Hold Glipizide for 48 hours * R ISS high dose ACHS * accuchecks ACHS GI: hx GERD Medications and management: * Famotidine 20 mg po daily : hx BPH and Urinary retention Medications and management: * Tamsulosin .4mg po daily * f/u with urologist, Dr. Mckenzie as an outpatient * Cipro 500 mg po daily Prophylaxis: Medications and management: * Struvite daily * holding prednisone and cetirizine which was given to him for allergies which are no longer bothering him * 1/2 NS @60 ml/ hr * Florastor 250 mg po BID (do not give within 2 hours of cipro) <Bernardo Clark - Last Filed: 07/26/17 17:13> CCU Objective - Vital Signs / Intake & Output Intake and Output (Last 8hrs): Intake & Output 07/26/17 07/26/17 07/26/17 06:59 14:59 22:59 Intake Total 290 380 Output Total 400 350 Balance -110 30 Intake: Intake, IV Amount 240 180 Left Hand 240 180 Oral 50 200 Output: Urine 400 350 Urethral (Lundberg) 400 350 Other: # Bowel Movements 0 - Medications Active Medications: Active Medications Generic Name Dose Route Start Last Admin Trade Name Freq PRN Reason Stop Dose Admin Aspirin 81 mg 07/26/17 08:30 07/26/17 08:27 Aspirin Chewable PO 81 mg DAILY [facility] Administration Ciprofloxacin 500 mg 07/25/17 18:45 07/26/17 10:22 Cipro PO Not Given BID [facility] Clopidogrel Bisulfate 75 mg 07/26/17 08:30 07/26/17 08:28 Plavix PO 75 mg DAILY [facility] Administration Famotidine 20 mg 07/25/17 22:00 07/26/17 10:23 Pepcid PO Not Given Q12 [facility] Heparin Sodium (Porcine) 5,000 units 07/25/17 22:00 07/26/17 10:23 Heparin SC Not Given Q12 [facility] Sodium Chloride 1,000 mls @ 60 mls/hr 07/26/17 14:45 Sodium Chloride 0.45% IV 07/27/17 08:00 .[id number] [facility] Insulin Human Regular 0 unit 07/25/17 22:00 07/26/17 14:43 Novolin R SC Not Given ACHS [facility] Protocol Lisinopril 2.5 mg 07/26/17 10:00 07/26/17 10:23 Zestril PO Not Given DAILY [facility] Rosuvastatin Calcium 40 mg 07/25/17 22:00 07/25/17 23:15 Crestor PO 40 mg HS PATRICIA Administration Saccharomyces Boulardii 250 mg 07/26/17 10:00 07/26/17 10:23 Florastor PO Not Given BID PATRICIA Tamsulosin HCl 0.4 mg 07/26/17 10:00 Flomax PO DAILY PATR[facility] Vitamin B Complex/Vitamin C 1 tab 07/26/17 10:00 07/26/17 10:22 Berocca PO Not Given DAILY PATRICIA - Patient Studies Lab Studies: Lab Studies 07/26/17 07/26/17 07/26/17 Range/Units 07:40 06:14 06:14 WBC 27.5 H (4.8-10.8) K/uL RBC 3.73 L (4.40-5.90) Mil/uL Hgb 13.3 D (12.0-18.0) g/dL Hct 39.5 (35.0-51.0) % MCV 105.9 H (80.0-94.0) fL MCH 35.6 H (27.0-31.0) pg MCHC 33.6 (33.0-37.0) g/dL RDW 20.0 H (11.5-14.5) % Plt Count 210 (130-400) K/uL MPV 9.6 (7.2-11.7) fL Neut % (Auto) 26.8 L (50.0-75.0) % Lymph % (Auto) 69.9 H (20.0-40.0) % [place] % (Auto) 2.3 (0.0-10.0) % Eos % (Auto) 0.7 (0.0-4.0) % Baso % (Auto) 0.3 (0.0-2.0) % Neut # 7.4 H (1.8-7.0) K/uL Lymph # 19.2 H (1.0-4.3) K/uL [place] # 0.6 (0.0-0.8) K/uL Eos # 0.2 (0.0-0.7) K/uL Baso # 0.1 (0.0-0.2) K/uL PT (9.7-12.2) SECONDS INR APTT (21-34) SECONDS Sodium (132-148) mmol/L Potassium (3.6-5.2) mmol/L Chloride (98-107) mmol/L Carbon Dioxide (22-30) mmol/L Anion Gap (10-20) BUN (9-20) mg/dL Creatinine (0.8-1.5) mg/dL Est GFR ( Amer) Est GFR (Non-Af Amer) POC Glucose (mg/dL) 139 H (65-110) mg/dL Random Glucose (75-110) mg/dL Hemoglobin A1c 7.9 H (4.2-6.5) % Calcium (8.6-10.4) mg/dl Phosphorus (2.5-4.5) mg/dL Magnesium (1.6-2.3) mg/dL Total Bilirubin (0.2-1.3) mg/dL AST (17-59) U/L ALT (21-72) U/L Alkaline Phosphatase (38-126) U/L Total Creatine Kinase (55-170) U/L CK-MB (Mass) (0.0-3.38) ng/mL Troponin I, Quant (0.00-0.120) ng/mL Total Protein (6.3-8.3) g/dL Albumin (3.5-5.0) g/dL Globulin (2.2-3.9) gm/dL Albumin/Globulin Ratio (1.0-2.1) Triglycerides (0-149) mg/dL Cholesterol (0-199) mg/dL LDL Cholesterol Direct (0-129) mg/dL HDL Cholesterol (30-70) mg/dL TSH 3rd Generation (0.46-4.68) mIU/L 07/26/17 07/26/17 07/25/17 Range/Units 06:10 06:10 21:09 WBC (4.8-10.8) K/uL RBC (4.40-5.90) Mil/uL Hgb (12.0-18.0) g/dL Hct (35.0-51.0) % MCV (80.0-94.0) fL MCH (27.0-31.0) pg MCHC (33.0-37.0) g/dL RDW (11.5-14.5) % Plt Count (130-400) K/uL MPV (7.2-11.7) fL Neut % (Auto) (50.0-75.0) % Lymph % (Auto) (20.0-40.0) % [place] % (Auto) (0.0-10.0) % Eos % (Auto) (0.0-4.0) % Baso % (Auto) (0.0-2.0) % Neut # (1.8-7.0) K/uL Lymph # (1.0-4.3) K/uL [place] # (0.0-0.8) K/uL Eos # (0.0-0.7) K/uL Baso # (0.0-0.2) K/uL PT 11.5 (9.7-12.2) SECONDS INR 1.0 APTT 31 (21-34) SECONDS Sodium 133 (132-148) mmol/L Potassium 4.5 (3.6-5.2) mmol/L Chloride 99 (98-107) mmol/L Carbon Dioxide 24 (22-30) mmol/L Anion Gap 13 (10-20) BUN 18 (9-20) mg/dL Creatinine 0.9 (0.8-1.5) mg/dL Est GFR ( Amer) > 60 Est GFR (Non-Af Amer) > 60 POC Glucose (mg/dL) 165 H (65-110) mg/dL Random Glucose 90 (75-110) mg/dL Hemoglobin A1c (4.2-6.5) % Calcium 8.9 (8.6-10.4) mg/dl Phosphorus 3.6 (2.5-4.5) mg/dL Magnesium 2.0 (1.6-2.3) mg/dL Total Bilirubin 2.2 H (0.2-1.3) mg/dL AST 26 (17-59) U/L ALT 53 (21-72) U/L Alkaline Phosphatase 43 (38-126) U/L Total Creatine Kinase 28 L (55-170) U/L CK-MB (Mass) 1.36 (0.0-3.38) ng/mL Troponin I, Quant < 0.0120 (0.00-0.120) ng/mL Total Protein 6.1 L (6.3-8.3) g/dL Albumin 3.3 L D (3.5-5.0) g/dL Globulin 2.9 (2.2-3.9) gm/dL Albumin/Globulin Ratio 1.1 (1.0-2.1) Triglycerides 114 (0-149) mg/dL Cholesterol 113 (0-199) mg/dL LDL Cholesterol Direct 61 (0-129) mg/dL HDL Cholesterol 41 (30-70) mg/dL TSH 3rd Generation 2.15 (0.46-4.68) mIU/L Laboratory Results - last 24 hr 07/25/17 07/26/17 07/26/17 21:09 06:10 06:10 WBC RBC Hgb Hct MCV MCH MCHC RDW Plt Count MPV Neut % (Auto) Lymph % (Auto) [place] % (Auto) Eos % (Auto) Baso % (Auto) Neut # Lymph # [place] # Eos # Baso # PT 11.5 INR 1.0 APTT 31 Sodium 133 Potassium 4.5 Chloride 99 Carbon Dioxide 24 Anion Gap 13 BUN 18 Creatinine 0.9 Est GFR ( Amer) > 60 Est GFR (Non-Af Amer) > 60 POC Glucose (mg/dL) 165 H Random Glucose 90 Hemoglobin A1c Calcium 8.9 Phosphorus 3.6 Magnesium 2.0 Total Bilirubin 2.2 H AST 26 ALT 53 Alkaline Phosphatase 43 Total Creatine Kinase 28 L CK-MB (Mass) 1.36 Troponin I, Quant < 0.0120 Total Protein 6.1 L Albumin 3.3 L D Globulin 2.9 Albumin/Globulin Ratio 1.1 Triglycerides 114 Cholesterol 113 LDL Cholesterol Direct 61 HDL Cholesterol 41 TSH 3rd Generation 2.15 07/26/17 07/26/17 07/26/17 06:14 06:14 07:40 WBC 27.5 H RBC 3.73 L Hgb 13.3 D Hct 39.5 MCV 105.9 H MCH 35.6 H MCHC 33.6 RDW 20.0 H Plt Count 210 MPV 9.6 Neut % (Auto) 26.8 L Lymph % (Auto) 69.9 H [place] % (Auto) 2.3 Eos % (Auto) 0.7 Baso % (Auto) 0.3 Neut # 7.4 H Lymph # 19.2 H [place] # 0.6 Eos # 0.2 Baso # 0.1 PT INR APTT Sodium Potassium Chloride Carbon Dioxide Anion Gap BUN Creatinine Est GFR ( Amer) Est GFR (Non-Af Amer) POC Glucose (mg/dL) 139 H Random Glucose Hemoglobin A1c 7.9 H Calcium Phosphorus Magnesium Total Bilirubin AST ALT Alkaline Phosphatase Total Creatine Kinase CK-MB (Mass) Troponin I, Quant Total Protein Albumin Globulin Albumin/Globulin Ratio Triglycerides Cholesterol LDL Cholesterol Direct HDL Cholesterol TSH 3rd Generation Critical Care Progress Note - Nutrition Nutrition: Nutrition Category Date Time Status Heart Healthy Diet [DIET] Diets 07/26/17 Lunch Active Attending/Attestation - Attestation I have personally seen and examined this patient.: Yes I have fully participated in the care of the patient.: Yes I have reviewed all pertinent clinical information: Yes Notes (Text): 07/26/17 Patient seen and examined in the intensive care unit. Case discussed with staff in the morning. Status post cardiac cath with triple-vessel disease To transfer to [facility] for further intervention Continue present treatment
[2017-07-26] MEDS: Vitamin B Complex/Vitamin C Tab PO SCH ×2 (08:27→10:22)
[2017-07-26] MEDS ORDERED: Saccharomyces Boulardi 250 mg Cap PO SCH (10:00)
[2017-07-26] MEDS: Saccharomyces Boulardi 250 mg Cap PO SCH ×2 (10:23→20:49)
--- NOTE | 2017-07-26 14:32 | CP.PCM.PN ---
Subjective - Date & Time of Evaluation Date of Evaluation: 07/26/17 Time of Evaluation: 14:31 - Subjective Subjective: Patient s/p successful LAD MARY ANN stent Plavix 75 daily for 1 year ASA 81, Statins for life 1/2 NS 60cc/Hr till tomorrow am OOB to ambulate after 6pm today Resume diet Objective - Vital Signs/Intake and Output Vital Signs (last 24 hours): Temp Pulse Resp BP Pulse Ox 97.4 F L 57 L 18 121/56 L 97 07/26/17 08:00 07/25/17 23:58 07/25/17 23:58 07/25/17 23:58 07/25/17 23:58 Intake and Output: 07/26/17 07/26/17 06:59 18:59 Intake Total 350 380 Output Total 600 350 Balance -250 30 - Medications Medications: Current Medications Aspirin (Aspirin Chewable) 81 mg PO DAILY [facility] Last Admin: 07/26/17 08:27 Dose: 81 mg Ciprofloxacin (Cipro) 500 mg PO BID [facility] Last Admin: 07/26/17 10:22 Dose: Not Given Clopidogrel Bisulfate (Plavix) 75 mg PO DAILY [facility] Last Admin: 07/26/17 08:28 Dose: 75 mg Famotidine (Pepcid) 20 mg PO Q12 [facility] Last Admin: 07/26/17 10:23 Dose: Not Given Heparin Sodium (Porcine) (Heparin) 5,000 units SC Q12 [facility] Last Admin: 07/26/17 10:23 Dose: Not Given Insulin Human Regular (Novolin R) 0 unit SC [facility] PRN Reason: Protocol Last Admin: 07/26/17 08:07 Dose: Not Given Lisinopril (Zestril) 2.5 mg PO DAILY [facility] Last Admin: 07/26/17 10:23 Dose: Not Given Rosuvastatin Calcium (Crestor) 40 mg PO HS [facility] Last Admin: 07/25/17 23:15 Dose: 40 mg Saccharomyces Boulardii (Florastor) 250 mg PO BID [facility] Last Admin: 07/26/17 10:23 Dose: Not Given Tamsulosin HCl (Flomax) 0.4 mg PO DAILY [facility] Vitamin B Complex/Vitamin C (Berocca) 1 tab PO DAILY [facility] Last Admin: 07/26/17 10:22 Dose: Not Given - Labs Labs: 07/26/17 06:14 07/26/17 06:10 PT 11.5 SECONDS (9.7-12.2) 07/26/17 06:10 INR 1.0 07/26/17 06:10 APTT 31 SECONDS (21-34) 07/26/17 06:10
--- NOTE | 2017-07-26 18:51 | CP.PCM.PN ---
Subjective - Date & Time of Evaluation Date of Evaluation: 07/26/17 Time of Evaluation: 13:00 - Subjective Subjective: Attempted to see patient but patient was transferred to [place] for intervention will come back later. Objective - Vital Signs/Intake and Output Vital Signs (last 24 hours): Temp Pulse Resp BP Pulse Ox 97.4 F L 57 L 18 121/56 L 97 07/26/17 08:00 07/25/17 23:58 07/25/17 23:58 07/25/17 23:58 07/25/17 23:58 Intake and Output: 07/26/17 07/26/17 06:59 18:59 Intake Total 350 380 Output Total 600 350 Balance -250 30 - Medications Medications: Current Medications Aspirin (Aspirin Chewable) 81 mg PO DAILY [facility] Last Admin: 07/26/17 08:27 Dose: 81 mg Ciprofloxacin (Cipro) 500 mg PO BID [facility] Last Admin: 07/26/17 10:22 Dose: Not Given Clopidogrel Bisulfate (Plavix) 75 mg PO DAILY [facility] Last Admin: 07/26/17 08:28 Dose: 75 mg Famotidine (Pepcid) 20 mg PO Q12 [facility] Last Admin: 07/26/17 10:23 Dose: Not Given Heparin Sodium (Porcine) (Heparin) 5,000 units SC Q12 [facility] Last Admin: 07/26/17 10:23 Dose: Not Given Sodium Chloride (Sodium Chloride 0.45%) 1,000 mls @ 60 mls/hr IV .[id number] [facility] Stop: 07/27/17 08:00 Insulin Human Regular (Novolin R) 0 unit SC ACHS [facility] PRN Reason: Protocol Last Admin: 07/26/17 14:43 Dose: Not Given Lisinopril (Zestril) 2.5 mg PO DAILY [facility] Last Admin: 07/26/17 10:23 Dose: Not Given Rosuvastatin Calcium (Crestor) 40 mg PO HS [facility] Last Admin: 07/25/17 23:15 Dose: 40 mg Saccharomyces Boulardii (Florastor) 250 mg PO BID [facility] Last Admin: 07/26/17 10:23 Dose: Not Given Tamsulosin HCl (Flomax) 0.4 mg PO DAILY [facility] Vitamin B Complex/Vitamin C (Berocca) 1 tab PO DAILY [facility] Last Admin: 07/26/17 10:22 Dose: Not Given - Labs Labs: 07/26/17 06:14 07/26/17 06:10 PT 11.5 SECONDS (9.7-12.2) 07/26/17 06:10 INR 1.0 07/26/17 06:10 APTT 31 SECONDS (21-34) 07/26/17 06:10
[2017-07-26] MEDS: Sodium Chloride 0.45% 1,000 ML IV SCH (20:59)
[2017-07-27 06:28] LABS: BASO # 0.1 K/uL (0.0-0.2); BASO % 0.3 % (0.0-2.0); EOS # 0.2 K/uL (0.0-0.7); EOS % 1.1 % (0.0-4.0); HEMATOCRIT 39.2 % (35.0-51.0); LYMPH # 13.1 K/uL (1.0-4.3); LYMPH % 61.9 % (20.0-40.0); MEAN CELL VOLUME 104.9 fL (80.0-94.0); MEAN CORPUSCULAR HEMOGLOBIN 35.5 pg (27.0-31.0); MEAN CORPUSCULAR HGB CONC 33.9 g/dL (33.0-37.0); MEAN PLATELET VOLUME 9.8 fL (7.2-11.7); MONO # 0.6 K/uL (0.0-0.8); MONO % 2.9 % (0.0-10.0); NRBC % 0.1 % (0.0-2.0); RED CELL DISTRIBUTION WIDTH 19.4 % (11.5-14.5); WHITE BLOOD COUNT 21.3 K/uL (4.8-10.8)
[2017-07-27 06:49] LABS: CHLORIDE 101 mmol/L (98-107); POTASSIUM 4.4 mmol/L (3.6-5.2); SODIUM 132 mmol/L (132-148)
[2017-07-27 06:51] LABS: ALB/GLOB RATIO 1.1 (1.0-2.1); ALKALINE PHOSPHATASE 48 U/L (38-126); AST/SGOT 24 U/L (17-59); CARBON DIOXIDE 22 mmol/L (22-30); GFR AFRICAN-AMERICAN > 60; TOTAL PROTEIN 6.2 g/dL (6.3-8.3)
[2017-07-27 06:52] LABS: ALT/SGPT 54 U/L (21-72); BLOOD UREA NITROGEN 16 mg/dL (9-20); CALCIUM 9.2 mg/dl (8.6-10.4); GLUCOSE,RANDOM 113 mg/dL (75-110); PHOSPHOROUS 3.3 mg/dL (2.5-4.5)
[2017-07-27] MEDS: Sodium Chloride 0.45% 1,000 ML IV SCH (07:35)
[2017-07-27] MEDS: (Novolin R) Insulin Human Regular 100 units/ml vial SC SCH ×4 (08:04→21:37)
[2017-07-27] MEDS: Vitamin B Complex/Vitamin C Tab PO SCH (09:59)
[2017-07-27] MEDS: Saccharomyces Boulardi 250 mg Cap PO SCH ×2 (09:59→17:16)
--- NOTE | 2017-07-27 11:34 | CP.CCUPN ---
<Laura Merchant - Last Filed: 07/27/17 11:31> CCU Subjective - Physician Review Subjective (Free Text): Patient seen and examined at bedside and in no acute distress. Patient POD#1 s/ p LAD MARY ANN placement by Dr. Sr. has no pain and is feeling okay. Patient last had a bowel movement on Tuesday. Patient denies chest pain, shortness of breath, abdominal pain, nausea, vomiting, or diarrhea. CCU Objective - Vital Signs / Intake & Output Vital Signs (Last 4 hours): Vital Signs Temp Pulse Resp BP Pulse Ox 07/27/17 09:00 64 20 94 L 07/27/17 08:07 60 14 99/63 L 94 L 07/27/17 08:00 97.4 F L 63 15 93 L Intake and Output (Last 8hrs): Intake & Output 07/26/17 07/27/17 07/27/17 22:59 06:59 14:59 Intake Total 300 120 Output Total 200 Balance 100 120 Intake: Intake, IV Amount 60 120 Left Hand 60 120 Oral 240 Output: Urine 200 Urethral (Lundberg) 200 - Physical Exam Head: Positive for: Atraumatic, Normocephalic Extroacular Muscles: Positive for: EOMI Conjunctiva: Positive for: Normal Mouth: Positive for: Moist Mucous Membranes Neck: Positive for: Normal Range of Motion Respiratory/Chest: Positive for: Clear to Auscultation, Good Air Exchange. Negative for: Respiratory Distress, Accessory Muscle Use Cardiovascular: Positive for: Regular Rate and Rhythm, Normal S1, S2 Abdomen: Positive for: Normal Bowel Sounds. Negative for: Tenderness, Distention Upper Extremity: Positive for: Normal Inspection (right wrist dressing clean, dry, intact) Lower Extremity: Positive for: Normal Inspection. Negative for: Edema Neurological: Positive for: GCS=15 Skin: Positive for: Warm, Dry, Normal Color Psychiatric: Positive for: Alert, Oriented x 3 - Medications Active Medications: Active Medications Generic Name Dose Route Start Last Admin Trade Name Freq PRN Reason Stop Dose Admin Aspirin 81 mg 07/26/17 08:30 07/27/17 10:01 Aspirin Chewable PO 81 mg DAILY PATRICIA Administration Ciprofloxacin 500 mg 07/25/17 18:45 07/27/17 09:59 Cipro PO 500 mg BID PATRICIA Administration Clopidogrel Bisulfate 75 mg 07/26/17 08:30 07/27/17 10:00 Plavix PO 75 mg DAILY PATRICIA Administration Famotidine 20 mg 07/25/17 22:00 07/27/17 10:00 Pepcid PO 20 mg Q12 PATRICIA Administration Heparin Sodium (Porcine) 5,000 units 07/25/17 22:00 07/27/17 09:59 Heparin SC 5,000 units Q12 PATRICIA Administration Insulin Human Regular 0 unit 07/25/17 22:00 07/27/17 08:04 Novolin R SC Not Given ACHS PATRICIA Protocol Lisinopril 2.5 mg 07/26/17 10:00 07/26/17 10:23 Zestril PO Not Given DAILY PATRICIA Rosuvastatin Calcium 40 mg 07/25/17 22:00 07/26/17 21:41 Crestor PO 40 mg HS PATRICIA Administration Saccharomyces Boulardii 250 mg 07/26/17 10:00 07/27/17 09:59 Florastor PO 250 mg BID PATRICIA Administration Tamsulosin HCl 0.4 mg 07/26/17 10:00 07/27/17 09:59 Flomax PO 0.4 mg DAILY PATRICIA Administration Vitamin B Complex/Vitamin C 1 tab 07/26/17 10:00 07/27/17 09:59 Berocca PO 1 tab DAILY PATRICIA Administration - Patient Studies Lab Studies: Microbiology Studies 07/25/17 19:30 MRSA Culture (Admit) - Final Naris MRSA NOT DETECTED Lab Studies 07/27/17 07/27/17 07/27/17 Range/Units 07:21 06:20 06:17 WBC 21.3 H (4.8-10.8) K/uL RBC 3.74 L (4.40-5.90) Mil/uL Hgb 13.3 (12.0-18.0) g/dL Hct 39.2 (35.0-51.0) % MCV 104.9 H (80.0-94.0) fL MCH 35.5 H (27.0-31.0) pg MCHC 33.9 (33.0-37.0) g/dL RDW 19.4 H (11.5-14.5) % Plt Count 182 (130-400) K/uL MPV 9.8 (7.2-11.7) fL Neut % (Auto) 33.8 L (50.0-75.0) % Lymph % (Auto) 61.9 H (20.0-40.0) % [place] % (Auto) 2.9 (0.0-10.0) % Eos % (Auto) 1.1 (0.0-4.0) % Baso % (Auto) 0.3 (0.0-2.0) % Neut # 7.2 H (1.8-7.0) K/uL Lymph # 13.1 H (1.0-4.3) K/uL [place] # 0.6 (0.0-0.8) K/uL Eos # 0.2 (0.0-0.7) K/uL Baso # 0.1 (0.0-0.2) K/uL Sodium 132 (132-148) mmol/L Potassium 4.4 (3.6-5.2) mmol/L Chloride 101 (98-107) mmol/L Carbon Dioxide 22 (22-30) mmol/L Anion Gap 13 (10-20) BUN 16 (9-20) mg/dL Creatinine 0.9 (0.8-1.5) mg/dL Est GFR ( Amer) > 60 Est GFR (Non-Af Amer) > 60 POC Glucose (mg/dL) 143 H (65-110) mg/dL Random Glucose 113 H (75-110) mg/dL Calcium 9.2 (8.6-10.4) mg/dl Phosphorus 3.3 (2.5-4.5) mg/dL Magnesium 2.0 (1.6-2.3) mg/dL Total Bilirubin 3.0 H (0.2-1.3) mg/dL AST 24 (17-59) U/L ALT 54 (21-72) U/L Alkaline Phosphatase 48 (38-126) U/L Total Protein 6.2 L (6.3-8.3) g/dL Albumin 3.3 L (3.5-5.0) g/dL Globulin 2.9 (2.2-3.9) gm/dL Albumin/Globulin Ratio 1.1 (1.0-2.1) 07/26/17 Range/Units 21:05 WBC (4.8-10.8) K/uL RBC (4.40-5.90) Mil/uL Hgb (12.0-18.0) g/dL Hct (35.0-51.0) % MCV (80.0-94.0) fL MCH (27.0-31.0) pg MCHC (33.0-37.0) g/dL RDW (11.5-14.5) % Plt Count (130-400) K/uL MPV (7.2-11.7) fL Neut % (Auto) (50.0-75.0) % Lymph % (Auto) (20.0-40.0) % [place] % (Auto) (0.0-10.0) % Eos % (Auto) (0.0-4.0) % Baso % (Auto) (0.0-2.0) % Neut # (1.8-7.0) K/uL Lymph # (1.0-4.3) K/uL [place] # (0.0-0.8) K/uL Eos # (0.0-0.7) K/uL Baso # (0.0-0.2) K/uL Sodium (132-148) mmol/L Potassium (3.6-5.2) mmol/L Chloride (98-107) mmol/L Carbon Dioxide (22-30) mmol/L Anion Gap (10-20) BUN (9-20) mg/dL Creatinine (0.8-1.5) mg/dL Est GFR ( Amer) Est GFR (Non-Af Amer) POC Glucose (mg/dL) 170 H (65-110) mg/dL Random Glucose (75-110) mg/dL Calcium (8.6-10.4) mg/dl Phosphorus (2.5-4.5) mg/dL Magnesium (1.6-2.3) mg/dL Total Bilirubin (0.2-1.3) mg/dL AST (17-59) U/L ALT (21-72) U/L Alkaline Phosphatase (38-126) U/L Total Protein (6.3-8.3) g/dL Albumin (3.5-5.0) g/dL Globulin (2.2-3.9) gm/dL Albumin/Globulin Ratio (1.0-2.1) Laboratory Results - last 24 hr 10/07/27/17 07/27/17 21:05 06:17 06:20 WBC 21.3 H RBC 3.74 L Hgb 13.3 Hct 39.2 MCV 104.9 H MCH 35.5 H MCHC 33.9 RDW 19.4 H Plt Count 182 MPV 9.8 Neut % (Auto) 33.8 L Lymph % (Auto) 61.9 H [place] % (Auto) 2.9 Eos % (Auto) 1.1 Baso % (Auto) 0.3 Neut # 7.2 H Lymph # 13.1 H [place] # 0.6 Eos # 0.2 Baso # 0.1 Sodium 132 Potassium 4.4 Chloride 101 Carbon Dioxide 22 Anion Gap 13 BUN 16 Creatinine 0.9 Est GFR ( Amer) > 60 Est GFR (Non-Af Amer) > 60 POC Glucose (mg/dL) 170 H Random Glucose 113 H Calcium 9.2 Phosphorus 3.3 Magnesium 2.0 Total Bilirubin 3.0 H AST 24 ALT 54 Alkaline Phosphatase 48 Total Protein 6.2 L Albumin 3.3 L Globulin 2.9 Albumin/Globulin Ratio 1.1 07/27/17 07:21 WBC RBC Hgb Hct MCV MCH MCHC RDW Plt Count MPV Neut % (Auto) Lymph % (Auto) [place] % (Auto) Eos % (Auto) Baso % (Auto) Neut # Lymph # [place] # Eos # Baso # Sodium Potassium Chloride Carbon Dioxide Anion Gap BUN Creatinine Est GFR ( Amer) Est GFR (Non-Af Amer) POC Glucose (mg/dL) 143 H Random Glucose Calcium Phosphorus Magnesium Total Bilirubin AST ALT Alkaline Phosphatase Total Protein Albumin Globulin Albumin/Globulin Ratio Fingerstick Blood Sugar Results: 143 Review of Systems - Constitutional Constitutional: absent: Fever, Chills, Weakness - EENT Eyes: Blind Spots. absent: Blurred Vision - Cardiovascular Cardiovascular: absent: Chest Pain, Chest Pain at Rest, Claudication, Diaphoresis, Dyspnea, Leg Edema - Respiratory Respiratory: absent: Dyspnea, Wheezing, Stridor - Gastrointestinal Gastrointestinal: Constipation. absent: Diarrhea, Nausea, Vomiting - Genitourinary Genitourinary: absent: Difficulty Urinating Additional comments: lundberg in place - Musculoskeletal Musculoskeletal: absent: Numbness, Stiffness, Tingling - Integumentary Integumentary: absent: Rash Additional comments: mild tenderness in R groin, c/d/i dressing - Neurological Neurological: UNREMARKABLE - Hematologic/Lymphatic Hematologic: Easy Bleeding, Easy Bruising Critical Care Progress Note - Nutrition Nutrition: Nutrition Category Date Time Status Heart Healthy Diet [DIET] Diets 07/26/17 Lunch Active Assessment/Plan - Assessment and Plan (Free Text) Assessment: Patient is a 77 y/o M with PMHx of HTN, DM II, CLL, kidney stones, urinary retention, bph, and acid reflux POD#1 s/p LAD MARY ANN placement by Dr. 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 Sr * ASA 81 mg daily * Plavix 15mg daily * Crestor 40 mg daily * Heparin 5000 u sc q12h * Lisinopril 12.5 mg daily * Crestor 40 mg po daily Heme: hx CLL * stable Endo: hx DM II Medications and management: * Hold Glipizide for 48 hours * R ISS high dose ACHS * accuchecks ACHS GI: constipation, hx GERD Medications and management: * Colace 100mg PO TID * Famotidine 20 mg po daily : hx BPH and Urinary retention Medications and management: * Tamsulosin .4mg po daily * f/u with urologist, Dr. Mckenzie as an outpatient * Cipro 500 mg po daily Prophylaxis: Medications and management: * Struvite daily * holding prednisone and cetirizine which was given to him for allergies which are no longer bothering him * Florastor 250 mg po BID (do not give within 2 hours of cipro) <Bernardo Clark S - Last Filed: 07/27/17 16:55> CCU Objective - Vital Signs / Intake & Output Vital Signs (Last 4 hours): Vital Signs Temp Pulse Resp BP Pulse Ox 07/27/17 16:07 66 18 130/60 93 L 07/27/17 16:00 98.4 F 67 10 L 94 L 07/27/17 15:07 69 14 128/60 91 L 07/27/17 15:00 63 17 93 L 07/27/17 14:07 75 21 132/58 L 90 L 07/27/17 14:00 70 20 94 L 07/27/17 13:27 69 17 124/55 L 97 07/27/17 13:09 75 13 135/63 90 L 07/27/17 13:08 80 16 88/73 L 94 L 07/27/17 13:00 77 20 93 L Intake and Output (Last 8hrs): Intake & Output 07/27/17 07/27/17 07/27/17 06:59 14:59 22:59 Intake Total 120 370 Balance 120 370 Intake: Intake, IV Amount 120 120 Left Hand 120 120 Oral 250 Other: # Bowel Movements 0 - Medications Active Medications: Active Medications Generic Name Dose Route Start Last Admin Trade Name Freq PRN Reason Stop Dose Admin Acetaminophen 650 mg 07/27/17 11:38 Tylenol 325mg Tab PO Q6H PRN Pain, moderate (4-7) Aspirin 81 mg 07/26/17 08:30 07/27/17 10:01 Aspirin Chewable PO 81 mg DAILY PATRICIA Administration Ciprofloxacin 500 mg 07/25/17 18:45 07/27/17 09:59 Cipro PO 500 mg BID PATRICIA Administration Clopidogrel Bisulfate 75 mg 07/26/17 08:30 07/27/17 10:00 Plavix PO 75 mg DAILY PATRICIA Administration Docusate Sodium 100 mg 07/27/17 14:00 07/27/17 13:27 Colace PO 100 mg TID PATRICIA Administration Famotidine 20 mg 07/25/17 22:00 07/27/17 10:00 Pepcid PO 20 mg Q12 PATRICIA Administration Heparin Sodium (Porcine) 5,000 units 07/25/17 22:00 07/27/17 09:59 Heparin SC 5,000 units Q12 PATRICIA Administration Insulin Human Regular 0 unit 07/25/17 22:00 07/27/17 16:16 Novolin R SC 4 unit ACHS PATRICIA Administration Protocol Lisinopril 2.5 mg 07/26/17 10:00 07/27/17 13:27 Zestril PO 2.5 mg DAILY PATRICIA Administration Rosuvastatin Calcium 40 mg 07/25/17 22:00 07/26/17 21:41 Crestor PO 40 mg HS PATRICIA Administration Saccharomyces Boulardii 250 mg 07/26/17 10:00 10/25/17 09:59 Florastor PO 250 mg BID PATRICIA Administration Tamsulosin HCl 0.4 mg 07/26/17 10:00 07/27/17 09:59 Flomax PO 0.4 mg DAILY PATRICIA Administration Vitamin B Complex/Vitamin C 1 tab 07/26/17 10:00 07/27/17 09:59 Berocca PO 1 tab DAILY PATRICIA Administration - Patient Studies Lab Studies: Microbiology Studies 07/25/17 19:30 MRSA Culture (Admit) - Final Naris MRSA NOT DETECTED Lab Studies 07/27/17 07/27/17 07/27/17 Range/Units 16:10 11:18 07:21 WBC (4.8-10.8) K/uL RBC (4.40-5.90) Mil/uL Hgb (12.0-18.0) g/dL Hct (35.0-51.0) % MCV (80.0-94.0) fL MCH (27.0-31.0) pg MCHC (33.0-37.0) g/dL RDW (11.5-14.5) % Plt Count (130-400) K/uL MPV (7.2-11.7) fL Neut % (Auto) (50.0-75.0) % Lymph % (Auto) (20.0-40.0) % [place] % (Auto) (0.0-10.0) % Eos % (Auto) (0.0-4.0) % Baso % (Auto) (0.0-2.0) % Neut # (1.8-7.0) K/uL Lymph # (1.0-4.3) K/uL [place] # (0.0-0.8) K/uL Eos # (0.0-0.7) K/uL Baso # (0.0-0.2) K/uL Sodium (132-148) mmol/L Potassium (3.6-5.2) mmol/L Chloride (98-107) mmol/L Carbon Dioxide (22-30) mmol/L Anion Gap (10-20) BUN (9-20) mg/dL Creatinine (0.8-1.5) mg/dL Est GFR ( Amer) Est GFR (Non-Af Amer) POC Glucose (mg/dL) 208 H 187 H 143 H (65-110) mg/dL Random Glucose (75-110) mg/dL Calcium (8.6-10.4) mg/dl Phosphorus (2.5-4.5) mg/dL Magnesium (1.6-2.3) mg/dL Total Bilirubin (0.2-1.3) mg/dL AST (17-59) U/L ALT (21-72) U/L Alkaline Phosphatase (38-126) U/L Total Protein (6.3-8.3) g/dL Albumin (3.5-5.0) g/dL Globulin (2.2-3.9) gm/dL Albumin/Globulin Ratio (1.0-2.1) 07/27/17 07/27/17 07/26/17 Range/Units 06:20 06:17 21:05 WBC 21.3 H (4.8-10.8) K/uL RBC 3.74 L (4.40-5.90) Mil/uL Hgb 13.3 (12.0-18.0) g/dL Hct 39.2 (35.0-51.0) % MCV 104.9 H (80.0-94.0) fL MCH 35.5 H (27.0-31.0) pg MCHC 33.9 (33.0-37.0) g/dL RDW 19.4 H (11.5-14.5) % Plt Count 182 (130-400) K/uL MPV 9.8 (7.2-11.7) fL Neut % (Auto) 33.8 L (50.0-75.0) % Lymph % (Auto) 61.9 H (20.0-40.0) % [place] % (Auto) 2.9 (0.0-10.0) % Eos % (Auto) 1.1 (0.0-4.0) % Baso % (Auto) 0.3 (0.0-2.0) % Neut # 7.2 H (1.8-7.0) K/uL Lymph # 13.1 H (1.0-4.3) K/uL [place] # 0.6 (0.0-0.8) K/uL Eos # 0.2 (0.0-0.7) K/uL Baso # 0.1 (0.0-0.2) K/uL Sodium 132 (132-148) mmol/L Potassium 4.4 (3.6-5.2) mmol/L Chloride 101 (98-107) mmol/L Carbon Dioxide 22 (22-30) mmol/L Anion Gap 13 (10-20) BUN 16 (9-20) mg/dL Creatinine 0.9 (0.8-1.5) mg/dL Est GFR ( Amer) > 60 Est GFR (Non-Af Amer) > 60 POC Glucose (mg/dL) 170 H (65-110) mg/dL Random Glucose 113 H (75-110) mg/dL Calcium 9.2 (8.6-10.4) mg/dl Phosphorus 3.3 (2.5-4.5) mg/dL Magnesium 2.0 (1.6-2.3) mg/dL Total Bilirubin 3.0 H (0.2-1.3) mg/dL AST 24 (17-59) U/L ALT 54 (21-72) U/L Alkaline Phosphatase 48 (38-126) U/L Total Protein 6.2 L (6.3-8.3) g/dL Albumin 3.3 L (3.5-5.0) g/dL Globulin 2.9 (2.2-3.9) gm/dL Albumin/Globulin Ratio 1.1 (1.0-2.1) Laboratory Results - last 24 hr 07/26/17 07/27/17 07/27/17 21:05 06:17 06:20 WBC 21.3 H RBC 3.74 L Hgb 13.3 Hct 39.2 MCV 104.9 H MCH 35.5 H MCHC 33.9 RDW 19.4 H Plt Count 182 MPV 9.8 Neut % (Auto) 33.8 L Lymph % (Auto) 61.9 H [place] % (Auto) 2.9 Eos % (Auto) 1.1 Baso % (Auto) 0.3 Neut # 7.2 H Lymph # 13.1 H [place] # 0.6 Eos # 0.2 Baso # 0.1 Sodium 132 Potassium 4.4 Chloride 101 Carbon Dioxide 22 Anion Gap 13 BUN 16 Creatinine 0.9 Est GFR ( Amer) > 60 Est GFR (Non-Af Amer) > 60 POC Glucose (mg/dL) 170 H Random Glucose 113 H Calcium 9.2 Phosphorus 3.3 Magnesium 2.0 Total Bilirubin 3.0 H AST 24 ALT 54 Alkaline Phosphatase 48 Total Protein 6.2 L Albumin 3.3 L Globulin 2.9 Albumin/Globulin Ratio 1.1 07/27/17 07/27/17 07/27/17 07:21 11:18 16:10 WBC RBC Hgb Hct MCV MCH MCHC RDW Plt Count MPV Neut % (Auto) Lymph % (Auto) [place] % (Auto) Eos % (Auto) Baso % (Auto) Neut # Lymph # [place] # Eos # Baso # Sodium Potassium Chloride Carbon Dioxide Anion Gap BUN Creatinine Est GFR ( Amer) Est GFR (Non-Af Amer) POC Glucose (mg/dL) 143 H 187 H 208 H Random Glucose Calcium Phosphorus Magnesium Total Bilirubin AST ALT Alkaline Phosphatase Total Protein Albumin Globulin Albumin/Globulin Ratio Critical Care Progress Note - Nutrition Nutrition: Nutrition Category Date Time Status Heart Healthy Diet [DIET] Diets 07/26/17 Lunch Active Attending/Attestation - Attestation I have personally seen and examined this patient.: Yes I have fully participated in the care of the patient.: Yes I have reviewed all pertinent clinical information: Yes Notes (Text): 07/27/17 16:55 Patient seen and examined in the intensive care unit. Case discussed with house staff in the morning rounds. Status post drug-eluting stent placement in LAD Continue present treatment Stable for transfer to telemetry
--- NOTE | 2017-07-27 15:56 | CP.PCM.PN ---
Subjective - Date & Time of Evaluation Date of Evaluation: 07/27/17 Time of Evaluation: 15:45 - Subjective Subjective: Medical Attending Note: Patient seen and examined at bedside. Patient denies headache, denies chest pain, denies shortness of breathe, denies abdominal pain, reports has not had a bowel movement for 3 days, denies nausea, reports he is urinating. Objective - Vital Signs/Intake and Output Vital Signs (last 24 hours): Temp Pulse Resp BP Pulse Ox 97.4 F L 63 17 132/58 L 93 L 07/27/17 12:00 07/27/17 15:00 07/27/17 15:00 07/27/17 14:07 07/27/17 15:00 Intake and Output: 07/27/17 07/27/17 06:59 18:59 Intake Total 420 370 Output Total 200 Balance 220 370 - Medications Medications: Current Medications Acetaminophen (Tylenol 325mg Tab) 650 mg PO Q6H PRN PRN Reason: Pain, moderate (4-7) Aspirin (Aspirin Chewable) 81 mg PO DAILY [facility] Last Admin: 07/27/17 10:01 Dose: 81 mg Ciprofloxacin (Cipro) 500 mg PO BID [facility] Last Admin: 07/27/17 09:59 Dose: 500 mg Clopidogrel Bisulfate (Plavix) 75 mg PO DAILY [facility] Last Admin: 07/27/17 10:00 Dose: 75 mg Docusate Sodium (Colace) 100 mg PO TID [facility] Last Admin: 07/27/17 13:27 Dose: 100 mg Famotidine (Pepcid) 20 mg PO Q12 [facility] Last Admin: 07/27/17 10:00 Dose: 20 mg Heparin Sodium (Porcine) (Heparin) 5,000 units SC Q12 [facility] Last Admin: 07/27/17 09:59 Dose: 5,000 units Insulin Human Regular (Novolin R) 0 unit SC ACHS [facility] PRN Reason: Protocol Last Admin: 07/27/17 11:37 Dose: 2 unit Lisinopril (Zestril) 2.5 mg PO DAILY [facility] Last Admin: 07/27/17 13:27 Dose: 2.5 mg Rosuvastatin Calcium (Crestor) 40 mg PO HS [facility] Last Admin: 07/26/17 21:41 Dose: 40 mg Saccharomyces Boulardii (Florastor) 250 mg PO BID [facility] Last Admin: 07/27/17 09:59 Dose: 250 mg Tamsulosin HCl (Flomax) 0.4 mg PO DAILY [facility] Last Admin: 07/27/17 09:59 Dose: 0.4 mg Vitamin B Complex/Vitamin C (Berocca) 1 tab PO DAILY [facility] Last Admin: 07/27/17 09:59 Dose: 1 tab - Labs Labs: 07/27/17 06:20 07/27/17 06:17 PT 11.5 SECONDS (9.7-12.2) 07/26/17 06:10 INR 1.0 07/26/17 06:10 APTT 31 SECONDS (21-34) 07/26/17 06:10 - Constitutional Appears: Non-toxic, No Acute Distress - Head Exam Head Exam: NORMAL INSPECTION - Eye Exam Eye Exam: EOMI - ENT Exam ENT Exam: Mucous Membranes Moist - Respiratory Exam Respiratory Exam: Clear to Ausculation Bilateral, NORMAL BREATHING PATTERN. absent: Respiratory Distress, Stridor - Cardiovascular Exam Cardiovascular Exam: RRR, +S1, +S2 - GI/Abdominal Exam GI & Abdominal Exam: Distended, Soft, Normal Bowel Sounds, Rebound. absent: Firm, Guarding, Rigid, Tenderness - Extremities Exam Extremities Exam: absent: Pedal Edema, Tenderness - Neurological Exam Neurological Exam: Alert, Awake, Oriented x3 - Psychiatric Exam Psychiatric exam: Normal Mood - Skin Skin Exam: Dry, Normal Color, Warm Assessment and Plan (1) Triple vessel disease of the heart Assessment & Plan: Cardiology (Dr. Sr) on the case help appreciated Medications: * Aspirin 81mg PO daily * Plavix 75mg PO daily * Lisinopril 2.5mg PO daily * Crestor 40mg PO qHS Prior Echo (07/12/17): * Left ventricle is mildly dilated, left ventricle systolic function is moderately impaired. EF: 30-35%, moderate global hypokinesis of the left ventricle. Right ventricle is normal size, right ventricular systolic function is normal, left atrium is normal, right atrium size is normal, mild aortic regurgitation, mitral regurgitation is trace, mild tricupsid regurgitation, trace to mild pulmonic valvular regurgitation, mild aortic root dilatation, ascending aorta is mildly dilated Status: Acute (2) Diabetes Assessment & Plan: Hgba1c; 7.9 Lipid Panel: T, chol: 113, LDL: 61, HDL: 41 Regular insulin sliding subQ Status: Chronic (3) Lipid disorder Assessment & Plan: Crestor 40mg POqHS Lipid Panel: T, chol: 113, LDL: 61, HDL: 41 Status: Chronic (4) BPH (benign prostatic hyperplasia) Status: Chronic (5) Urinary retention Assessment & Plan: Discussed with Rn, patient has Caude catheter prior to admission. (Placed in last hospitalization read d/c summary) Patient has outpatient urology, Dr. Yang that he sees Ciprofloxocin 500mg PO BID Status: Chronic (6) CLL (chronic lymphocytic leukemia) Status: Chronic (7) GERD (gastroesophageal reflux disease) Assessment & Plan: Pepcid 20mg IV Q 12 Status: Chronic (8) Systolic congestive heart failure Assessment & Plan: Cardiology (Dr. Sr) on the case help appreciated Medications: * Aspirin 81mg PO daily * Plavix 75mg PO daily * Lisinopril 2.5mg PO daily * Crestor 40mg PO qHS Prior Echo (07/12/17): * Left ventricle is mildly dilated, left ventricle systolic function is moderately impaired. EF: 30-35%, moderate global hypokinesis of the left ventricle. Right ventricle is normal size, right ventricular systolic function is normal, left atrium is normal, right atrium size is normal, mild aortic regurgitation, mitral regurgitation is trace, mild tricupsid regurgitation, trace to mild pulmonic valvular regurgitation, mild aortic root dilatation, ascending aorta is mildly dilated Status: Chronic (9) Constipation Assessment & Plan: Has not had BM for three days Will give Ducolax Status: Acute (10) Prophylactic measure Assessment & Plan: Heparin 5000 units subq 12H Pepcid 20mg PO Q 12H Status: Acute
[2017-07-27] MEDS ORDERED: Bisacodyl 5mg EC Tab PO ONE (16:10)
--- NOTE | 2017-07-27 17:28 | CP.PCM.PN ---
<Shivani Gómez DO - Last Filed: 07/27/17 17:23> Subjective - Date & Time of Evaluation Date of Evaluation: 07/27/17 Time of Evaluation: 10:20 - Subjective Subjective: Cardiology progress note for Dr. Sr Patient seen and examined. Patient states he feels well, denies dyspnea or chest pain. Patient states he has minor pain around cath site. Patient eating well but admits to constipation. Objective - Vital Signs/Intake and Output Vital Signs (last 24 hours): Temp Pulse Resp BP Pulse Ox 98.4 F 66 18 130/60 93 L 07/27/17 16:00 07/27/17 16:07 07/27/17 16:07 07/27/17 16:07 07/27/17 16:07 Intake and Output: 07/27/17 07/27/17 06:59 18:59 Intake Total 420 370 Output Total 200 Balance 220 370 - Medications Medications: Current Medications Acetaminophen (Tylenol 325mg Tab) 650 mg PO Q6H PRN PRN Reason: Pain, moderate (4-7) Aspirin (Aspirin Chewable) 81 mg PO DAILY [facility] Last Admin: 07/27/17 10:01 Dose: 81 mg Ciprofloxacin (Cipro) 500 mg PO BID [facility] Last Admin: 07/27/17 17:16 Dose: 500 mg Clopidogrel Bisulfate (Plavix) 75 mg PO DAILY [facility] Last Admin: 07/27/17 10:00 Dose: 75 mg Docusate Sodium (Colace) 100 mg PO TID [facility] Last Admin: 07/27/17 17:16 Dose: 100 mg Famotidine (Pepcid) 20 mg PO Q12 [facility] Last Admin: 07/27/17 10:00 Dose: 20 mg Heparin Sodium (Porcine) (Heparin) 5,000 units SC Q12 [facility] Last Admin: 07/27/17 09:59 Dose: 5,000 units Insulin Human Regular (Novolin R) 0 unit SC ACHS [facility] PRN Reason: Protocol Last Admin: 07/27/17 16:16 Dose: 4 unit Lisinopril (Zestril) 2.5 mg PO DAILY [facility] Last Admin: 07/27/17 13:27 Dose: 2.5 mg Rosuvastatin Calcium (Crestor) 40 mg PO HS [facility] Last Admin: 07/26/17 21:41 Dose: 40 mg Saccharomyces Boulardii (Florastor) 250 mg PO BID [facility] Last Admin: 07/27/17 17:16 Dose: 250 mg Tamsulosin HCl (Flomax) 0.4 mg PO DAILY [facility] Last Admin: 07/27/17 09:59 Dose: 0.4 mg Vitamin B Complex/Vitamin C (Berocca) 1 tab PO DAILY [facility] Last Admin: 07/27/17 09:59 Dose: 1 tab - Labs Labs: 07/27/17 06:20 07/27/17 06:17 PT 11.5 SECONDS (9.7-12.2) 07/26/17 06:10 INR 1.0 07/26/17 06:10 APTT 31 SECONDS (21-34) 07/26/17 06:10 - Constitutional Appears: Non-toxic, No Acute Distress - Head Exam Head Exam: ATRAUMATIC, NORMOCEPHALIC - Eye Exam Eye Exam: EOMI - ENT Exam ENT Exam: Mucous Membranes Moist - Respiratory Exam Respiratory Exam: Clear to Ausculation Bilateral, NORMAL BREATHING PATTERN - Cardiovascular Exam Cardiovascular Exam: +S1, +S2 - GI/Abdominal Exam GI & Abdominal Exam: Soft, Normal Bowel Sounds. absent: Tenderness - Extremities Exam Extremities Exam: absent: Pedal Edema Additional comments: right groin dressing intact, area soft - Neurological Exam Neurological Exam: Alert, Awake - Psychiatric Exam Psychiatric exam: Normal Affect - Skin Skin Exam: Warm Assessment and Plan - Assessment and Plan (Free Text) Assessment: 77 year old male with Hx HTN, DM, CAD, with recent hospitalization for high cholesterol renal stones and severe urinary tract obstruction and lundberg placement. 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 Sr <Rudy Sr - Last Filed: 07/27/17 23:48> Objective - Vital Signs/Intake and Output Vital Signs (last 24 hours): Temp Pulse Resp BP Pulse Ox 97.8 F 72 20 135/73 93 L 07/27/17 20:30 07/27/17 20:30 07/27/17 20:30 07/27/17 20:30 07/27/17 20:30 Intake and Output: 07/27/17 07/28/17 18:59 06:59 Intake Total 1470 100 Output Total 1150 Balance 320 100 - Medications Medications: Current Medications Acetaminophen (Tylenol 325mg Tab) 650 mg PO Q6H PRN PRN Reason: Pain, moderate (4-7) Aspirin (Aspirin Chewable) 81 mg PO DAILY [facility] Last Admin: 07/27/17 10:01 Dose: 81 mg Ciprofloxacin (Cipro) 500 mg PO BID [facility] Last Admin: 07/27/17 17:16 Dose: 500 mg Clopidogrel Bisulfate (Plavix) 75 mg PO DAILY [facility] Last Admin: 07/27/17 10:00 Dose: 75 mg Docusate Sodium (Colace) 100 mg PO TID [facility] Last Admin: 07/27/17 17:16 Dose: 100 mg Famotidine (Pepcid) 20 mg PO Q12 [facility] Last Admin: 07/27/17 21:37 Dose: 20 mg Heparin Sodium (Porcine) (Heparin) 5,000 units SC Q12 [facility] Last Admin: 07/27/17 21:37 Dose: 5,000 units Insulin Human Regular (Novolin R) 0 unit SC ACHS [facility] PRN Reason: Protocol Last Admin: 07/27/17 21:37 Dose: Not Given Lisinopril (Zestril) 2.5 mg PO DAILY [facility] Last Admin: 07/27/17 13:27 Dose: 2.5 mg Rosuvastatin Calcium (Crestor) 40 mg PO HS [facility] Last Admin: 07/27/17 21:37 Dose: 40 mg Saccharomyces Boulardii (Florastor) 250 mg PO BID [facility] Last Admin: 07/27/17 17:16 Dose: 250 mg Tamsulosin HCl (Flomax) 0.4 mg PO DAILY [facility] Last Admin: 07/27/17 09:59 Dose: 0.4 mg Vitamin B Complex/Vitamin C (Berocca) 1 tab PO DAILY [facility] Last Admin: 07/27/17 09:59 Dose: 1 tab - Labs Labs: 07/27/17 06:20 07/27/17 06:17 PT 11.5 SECONDS (9.7-12.2) 07/26/17 06:10 INR 1.0 07/26/17 06:10 APTT 31 SECONDS (21-34) 07/26/17 06:10 Assessment and Plan - Assessment and Plan (Free Text) Assessment: Patient seen and evaluated with the nuclear medical tech Plan of care as documented
[2017-07-28] MEDS: (Novolin R) Insulin Human Regular 100 units/ml vial SC SCH (07:30)
[2017-07-28 08:15] LABS: BASO # 0.1 K/uL (0.0-0.2); BASO % 0.4 % (0.0-2.0); EOS # 0.3 K/uL (0.0-0.7); EOS % 1.3 % (0.0-4.0); HEMATOCRIT 41.5 % (35.0-51.0); LYMPH # 12.5 K/uL (1.0-4.3); LYMPH % 66.2 % (20.0-40.0); MEAN CELL VOLUME 104.8 fL (80.0-94.0); MEAN CORPUSCULAR HEMOGLOBIN 35.3 pg (27.0-31.0); MEAN CORPUSCULAR HGB CONC 33.7 g/dL (33.0-37.0); MEAN PLATELET VOLUME 9.5 fL (7.2-11.7); MONO # 0.5 K/uL (0.0-0.8); MONO % 2.9 % (0.0-10.0); NRBC % 0.2 % (0.0-2.0); RED CELL DISTRIBUTION WIDTH 18.9 % (11.5-14.5); WHITE BLOOD COUNT 18.9 K/uL (4.8-10.8)
[2017-07-28 08:52] LABS: CHLORIDE 99 mmol/L (98-107)
[2017-07-28 08:53] LABS: POTASSIUM 4.3 mmol/L (3.6-5.2)
[2017-07-28 08:55] LABS: BILIRUBIN,TOTAL 2.8 mg/dL (0.2-1.3); GFR AFRICAN-AMERICAN > 60
[2017-07-28 08:56] LABS: ALB/GLOB RATIO 1.6 (1.0-2.1); ALKALINE PHOSPHATASE 50 U/L (38-126); ALT/SGPT 43 U/L (21-72); AST/SGOT 24 U/L (17-59); BLOOD UREA NITROGEN 15 mg/dL (9-20); CALCIUM 9.1 mg/dl (8.6-10.4); CARBON DIOXIDE 22 mmol/L (22-30); GLUCOSE,RANDOM 133 mg/dL (75-110); PHOSPHOROUS 2.7 mg/dL (2.5-4.5); TOTAL PROTEIN 5.9 g/dL (6.3-8.3)
[2017-07-28 08:57] LABS: MAGNESIUM 1.9 mg/dL (1.6-2.3)
[2017-07-28 08:58] LABS: SODIUM 131 mmol/L (132-148)
--- NOTE | 2017-07-28 10:08 | CP.PCM.PN ---
<Shivani Gómez DO - Last Filed: 07/28/17 11:00> Subjective - Date & Time of Evaluation Date of Evaluation: 07/28/17 Time of Evaluation: 10:03 - Subjective Subjective: Cardiology progress note for Dr. Sr Patient seen and examined. Patient denies chest pain or dyspnea. Patient states he is ambulating without difficulty. Patient reports small bowel movement yesterday evening. Objective - Vital Signs/Intake and Output Vital Signs (last 24 hours): Temp Pulse Resp BP Pulse Ox 97.3 F L 71 21 128/67 90 L 07/28/17 09:15 07/28/17 09:15 07/28/17 09:15 07/28/17 09:15 07/28/17 09:15 Intake and Output: 07/28/17 07/28/17 06:59 18:59 Intake Total 300 Output Total 1450 Balance -1150 - Medications Medications: Current Medications Acetaminophen (Tylenol 325mg Tab) 650 mg PO Q6H PRN PRN Reason: Pain, moderate (4-7) Aspirin (Aspirin Chewable) 81 mg PO DAILY [facility] Last Admin: 07/27/17 10:01 Dose: 81 mg Ciprofloxacin (Cipro) 500 mg PO BID [facility] Last Admin: 07/27/17 17:16 Dose: 500 mg Clopidogrel Bisulfate (Plavix) 75 mg PO DAILY [facility] Last Admin: 07/27/17 10:00 Dose: 75 mg Docusate Sodium (Colace) 100 mg PO TID [facility] Last Admin: 07/27/17 17:16 Dose: 100 mg Famotidine (Pepcid) 20 mg PO Q12 [facility] Last Admin: 07/27/17 21:37 Dose: 20 mg Heparin Sodium (Porcine) (Heparin) 5,000 units SC Q12 [facility] Last Admin: 07/27/17 21:37 Dose: 5,000 units Insulin Human Regular (Novolin R) 0 unit SC ACHS [facility] PRN Reason: Protocol Last Admin: 07/27/17 21:37 Dose: Not Given Lisinopril (Zestril) 2.5 mg PO DAILY [facility] Last Admin: 07/27/17 13:27 Dose: 2.5 mg Rosuvastatin Calcium (Crestor) 40 mg PO HS [facility] Last Admin: 07/27/17 21:37 Dose: 40 mg Saccharomyces Boulardii (Florastor) 250 mg PO BID [facility] Last Admin: 07/27/17 17:16 Dose: 250 mg Tamsulosin HCl (Flomax) 0.4 mg PO DAILY [facility] Last Admin: 07/27/17 09:59 Dose: 0.4 mg Vitamin B Complex/Vitamin C (Berocca) 1 tab PO DAILY [facility] Last Admin: 07/27/17 09:59 Dose: 1 tab - Labs Labs: 07/28/17 08:01 07/28/17 08:01 PT 11.5 SECONDS (9.7-12.2) 07/26/17 06:10 INR 1.0 07/26/17 06:10 APTT 31 SECONDS (21-34) 07/26/17 06:10 - Constitutional Appears: Non-toxic, No Acute Distress - Head Exam Head Exam: ATRAUMATIC, NORMOCEPHALIC - Eye Exam Eye Exam: EOMI - ENT Exam ENT Exam: Mucous Membranes Moist - Respiratory Exam Respiratory Exam: Clear to Ausculation Bilateral, NORMAL BREATHING PATTERN. absent: Respiratory Distress - Cardiovascular Exam Cardiovascular Exam: +S1, +S2 - GI/Abdominal Exam GI & Abdominal Exam: Soft, Normal Bowel Sounds. absent: Tenderness - Extremities Exam Extremities Exam: Normal Inspection. absent: Pedal Edema - Neurological Exam Neurological Exam: Alert, Awake - Psychiatric Exam Psychiatric exam: Normal Affect - Skin Skin Exam: Warm Assessment and Plan - Assessment and Plan (Free Text) Assessment: 77 year old male with Hx HTN, DM, CAD, with recent hospitalization for high cholesterol renal stones and severe urinary tract obstruction and lundberg placement. Cardiac cath on 07/25 significant for triple vessel disease Triple Vessel disease Patient s/p LAD MARY ANN on 07/26/17 patient to continue plavix 75mg for one year continue ASA & statin lifelong Tylenol as needed for cath site pain Patient okay for discharge from cardiology standpoint. Patient will need outpatient follow up within 1-2 weeks Chronic systolic congestive heart failure continue medical management: Lisinopril 2.5mg PO daily, Crestor 40mg PO qHS Prior Echo (07/12/17): Left ventricle is mildly dilated, left ventricle systolic function is moderately impaired. EF: 30-35%, moderate global hypokinesis of the left ventricle. Right ventricle is normal size, right ventricular systolic function is normal, left atrium is normal, right atrium size is normal, mild aortic regurgitation, mitral regurgitation is trace, mild tricupsid regurgitation, trace to mild pulmonic valvular regurgitation, mild aortic root dilatation, ascending aorta is mildly dilated Plan as per Dr. Sr <Rudy Sr - Last Filed: 07/28/17 23:38> Objective - Vital Signs/Intake and Output Vital Signs (last 24 hours): Temp Pulse Resp BP Pulse Ox 98.1 F 67 20 137/78 95 07/28/17 17:00 07/28/17 17:29 07/28/17 17:00 07/28/17 17:00 07/28/17 17:00 Intake and Output: 07/28/17 07/29/17 18:59 06:59 Intake Total 300 Output Total 800 Balance -500 - Labs Labs: 07/28/17 08:01 07/28/17 08:01 PT 11.5 SECONDS (9.7-12.2) 07/26/17 06:10 INR 1.0 07/26/17 06:10 APTT 31 SECONDS (21-34) 07/26/17 06:10 Assessment and Plan - Assessment and Plan (Free Text) Assessment: Patient seen and evaluated with the medical auditor Plan of care as documented
[2017-07-28] MEDS: Vitamin B Complex/Vitamin C Tab PO SCH (10:55)
[2017-07-28] MEDS: Saccharomyces Boulardi 250 mg Cap PO SCH (11:14)
[2017-07-28 15:24] VITALS: RESP 20; TEMP 98.1
[2017-07-28 17:19] VITALS: BP 137/78; O2SAT 95
[2017-07-28 17:39] VITALS: PULSE 67
--- NOTE | 2017-07-28 20:01 | CP.PCM.DIS ---
Provider - Provider Date of Admission: 07/25/17 15:15 Attending physician: Darian Davis MD Hospital Course - Lab Results Lab Results: Micro Results 07/27/17 21:35 Nose MRSA Culture - Final MRSA NOT DETECTED 07/25/17 19:30 Naris MRSA Culture (Admit) - Final MRSA NOT DETECTED Most Recent Lab Values WBC 18.9 K/uL (4.8-10.8) H 07/28/17 08:01 RBC 3.96 Mil/uL (4.40-5.90) L 07/28/17 08:01 Hgb 14.0 g/dL (12.0-18.0) 07/28/17 08:01 Hct 41.5 % (35.0-51.0) 07/28/17 08:01 MCV 104.8 fL (80.0-94.0) H 07/28/17 08:01 MCH 35.3 pg (27.0-31.0) H 07/28/17 08:01 MCHC 33.7 g/dL (33.0-37.0) 07/28/17 08:01 RDW 18.9 % (11.5-14.5) H 07/28/17 08:01 Plt Count 202 K/uL (130-400) 07/28/17 08:01 MPV 9.5 fL (7.2-11.7) 07/28/17 08:01 Neut % (Auto) 29.2 % (50.0-75.0) L 07/28/17 08:01 Lymph % (Auto) 66.2 % (20.0-40.0) H 07/28/17 08:01 [place] % (Auto) 2.9 % (0.0-10.0) 07/28/17 08:01 Eos % (Auto) 1.3 % (0.0-4.0) 07/28/17 08:01 Baso % (Auto) 0.4 % (0.0-2.0) 07/28/17 08:01 Neut # 5.5 K/uL (1.8-7.0) 07/28/17 08:01 Lymph # 12.5 K/uL (1.0-4.3) H 07/28/17 08:01 [place] # 0.5 K/uL (0.0-0.8) 07/28/17 08:01 Eos # 0.3 K/uL (0.0-0.7) 07/28/17 08:01 Baso # 0.1 K/uL (0.0-0.2) 07/28/17 08:01 PT 11.5 SECONDS (9.7-12.2) 07/26/17 06:10 INR 1.0 07/26/17 06:10 APTT 31 SECONDS (21-34) 07/26/17 06:10 Sodium 131 mmol/L (132-148) L 07/28/17 08:01 Potassium 4.3 mmol/L (3.6-5.2) 07/28/17 08:01 Chloride 99 mmol/L (98-107) 07/28/17 08:01 Carbon Dioxide 22 mmol/L (22-30) 07/28/17 08:01 Anion Gap 14 (10-20) 07/28/17 08:01 BUN 15 mg/dL (9-20) 07/28/17 08:01 Creatinine 0.8 mg/dL (0.8-1.5) 07/28/17 08:01 Est GFR ( Amer) > 60 07/28/17 08:01 Est GFR (Non-Af Amer) > 60 07/28/17 08:01 POC Glucose (mg/dL) 160 mg/dL (65-110) H 07/28/17 16:22 Random Glucose 133 mg/dL (75-110) H 07/28/17 08:01 Hemoglobin A1c 7.9 % (4.2-6.5) H 07/26/17 06:14 Calcium 9.1 mg/dl (8.6-10.4) 07/28/17 08:01 Phosphorus 2.7 mg/dL (2.5-4.5) 07/28/17 08:01 Magnesium 1.9 mg/dL (1.6-2.3) 07/28/17 08:01 Total Bilirubin 2.8 mg/dL (0.2-1.3) H 07/28/17 08:01 AST 24 U/L (17-59) 07/28/17 08:01 ALT 43 U/L (21-72) 07/28/17 08:01 Alkaline Phosphatase 50 U/L (38-126) 07/28/17 08:01 Total Creatine Kinase 22 U/L (55-170) L 07/28/17 08:51 CK-MB (Mass) 1.16 ng/mL (0.0-3.38) 07/28/17 08:51 Troponin I, Quant 0.0130 ng/mL (0.00-0.120) 07/28/17 08:51 Total Protein 5.9 g/dL (6.3-8.3) L 07/28/17 08:01 Albumin 3.6 g/dL (3.5-5.0) 07/28/17 08:01 Globulin 2.2 gm/dL (2.2-3.9) 07/28/17 08:01 Albumin/Globulin Ratio 1.6 (1.0-2.1) 07/28/17 08:01 Triglycerides 114 mg/dL (0-149) 07/26/17 06:10 Cholesterol 113 mg/dL (0-199) 07/26/17 06:10 LDL Cholesterol Direct 61 mg/dL (0-129) 07/26/17 06:10 HDL Cholesterol 41 mg/dL (30-70) 07/26/17 06:10 TSH 3rd Generation 2.15 mIU/L (0.46-4.68) 07/26/17 06:10 Discharge Exam - Head Exam Head Exam: ATRAUMATIC, NORMOCEPHALIC Discharge Plan - Discharge Medications Prescriptions: Aspirin [Aspirin Chewable] 81 mg PO DAILY #30 chew Ciprofloxacin [Cipro] 500 mg PO BID #8 tab Clopidogrel [Plavix] 75 mg PO DAILY #30 tab Rosuvastatin Calcium [Crestor] 40 mg PO HS #30 tab - Follow Up Plan Condition: GOOD Disposition: HOME/ ROUTINE Instructions: Ciprofloxacin (By mouth), Aspirin (By mouth), Clopidogrel (By mouth), Rosuvastatin (By mouth), Heart Failure (DC), Coronary Artery Disease (DC ), Heart Healthy Diet (DC), Heart Catheterization (DC), Coronary Intravascular Stent Placement (DC) Additional Instructions: Follow up with your primary medical physician within 1 week. Follow up with administrative job titles (Dr. Lashawn Sr) in 1 - 2 weeks. Please take all medications as instructed. Referrals: Rudy Sr MD [Staff Provider] -
--- NOTE | 2017-07-29 16:52 | CARD ---
APPROVED REPORT EKG Measurement Heart [id number] <Conclusion> Normal sinus rhythm with sinus arrhythmia Normal ECG
== END 2017-07-28 17:39 | disposition home or self-care (01) | DRG 247 ==
LOC: C.CATHLAB 11:17 → C.9I 15:15 → C.5S 07-27 20:29
PROVIDERS: ADMIT Family Medicine; ATTEND Family Medicine
PROC: 4A023N7 Measurement of Cardiac Sampling and Pressure, Left Heart, Percutaneous Approach (ICD-10-PCS; 2017-07-25)
PROC: B2151ZZ Fluoroscopy of Left Heart using Low Osmolar Contrast (ICD-10-PCS; 2017-07-25)
PROC: B2111ZZ Fluoroscopy of Multiple Coronary Arteries using Low Osmolar Contrast (ICD-10-PCS; 2017-07-25)
PROC: 027034Z Dilation of Coronary Artery, One Artery with Drug-eluting Intraluminal Device, Percutaneous Approach (ICD-10-PCS; principal; 2017-07-26)
DX: I25.10 Atherosclerotic heart disease of native coronary artery without angina pectoris (principal); C91.10 Chronic lymphocytic leukemia of B-cell type not having achieved remission; I13.0 Hypertensive heart and chronic kidney disease with heart failure and stage 1 through stage 4 chronic kidney disease, or unspecified chronic kidney disease; I50.22 Chronic systolic (congestive) heart failure; E11.22 Type 2 diabetes mellitus with diabetic chronic kidney disease; N18.9 Chronic kidney disease, unspecified; N13.8 Other obstructive and reflux uropathy; R06.02 Shortness of breath; E11.9 Type 2 diabetes mellitus without complications; I25.83 Coronary atherosclerosis due to lipid rich plaque; N40.1 Benign prostatic hyperplasia with lower urinary tract symptoms; I08.0 Rheumatic disorders of both mitral and aortic valves; E78.00 Pure hypercholesterolemia, unspecified; E78.5 Hyperlipidemia, unspecified; K59.00 Constipation, unspecified; N20.0 Calculus of kidney; K21.9 Gastro-esophageal reflux disease without esophagitis; Z79.02 Long term (current) use of antithrombotics/antiplatelets; Z79.82 Long term (current) use of aspirin; Z79.84 Long term (current) use of oral hypoglycemic drugs; Z79.899 Other long term (current) drug therapy; Z87.442 Personal history of urinary calculi; Z87.891 Personal history of nicotine dependence

== ENCOUNTER 2018-10-05 10:36 | Outpatient (CLI) | payer MEDICARE | END 2018-10-05 10:37 | disposition home or self-care (01) | LOC: C.RADIC 10:36 | DX: R05 Cough (principal) ==